=== PATIENT | male | born 1950 | race African-American/Black ===

== ENCOUNTER 2016-06-06 15:28 | Inpatient (IN) | payer MEDICARE, OTHER ==
[2016-06-06] VITALS (7 sets, daily range): BP systolic 118–142; BP diastolic 75–91; PULSE 84–106; RESP 18–20; TEMP 96.7–101.9; O2SAT 94–98
[~2016-06-06] VITALS: Ht 193 cm; Wt 99.0 kg
[~2016-06-06 15:28] MED LIST: 1-ME1LIQ PO; AMIT100 PO; ATEN-102 PO; DEPA500T3 PO; HALO10 PO; HALO5 PO; HYDR1CAP30 PO; TRIH2 PO; VITA100T65 PO; ZOCO40TA PO
[2016-06-06] MEDS ORDERED: OMEP20CA2 PO (15:54)
[2016-06-06] MEDS ORDERED: AMLO10TA2 PO (15:54)
[2016-06-06] MEDS ORDERED: DEPA500T PO ×2 (15:54)
[2016-06-06] MEDS ORDERED: AMIT100T2 PO (15:54)
[2016-06-06] MEDS ORDERED: HYDR1CAP30 PO (15:54)
[2016-06-06] MEDS ORDERED: VITA10006 PO (15:54)
[2016-06-06] MEDS ORDERED: HALO10TA PO (15:54)
[2016-06-06] MEDS ORDERED: TRIH2 PO (15:54)
[2016-06-06] MEDS ORDERED: ACETAMINOPHEN 325 MG TAB PO ONE (16:00)
[2016-06-06] MEDS ORDERED: SODIUM CHLOR 0.9% 1000 ML INJ 1,000 ML IV ONE ×2 (16:00→17:15)
--- NOTE | 2016-06-06 16:29 | PD ---
HPI Chief Complaint: General Weakness Time Seen by Provider: 15:37 Travel History International Travel<30 days: No Contact w/Intl Traveler<30days: No Traveled to known affect area: No History of Present Illness HPI This 65-year-old male presents to the emergency department complaining of generalized weakness. States she's been feeling more weak for the past several months. Today he was on the commode and he slid off and couldn't get himself back up. He states is been able to get himself up a few falls for a few months. He otherwise has been feeling generally well. He has a fever here. No urinary symptoms, URI symptoms, or any other new or worsening symptoms. History Past Medical History Narrative Medical Psychiatric disease, documented as manic depressive, adjustment disorder, and rule out schizoaffective disorder on the charts Hypertension Hyperlipidemia Social History Alcohol Use: No Tobacco Use: No Allergies-Medications (Allergen,Severity, Reaction): Coded Allergies: No Known Allergies (Verified , 06/06/16) Reported Meds & Prescriptions Reported Meds & Active Scripts Active Reported Vitamin E 1,000 Unit Cap 1,000 Units PO DAILY Trihexyphenidyl (Trihexyphenidyl HCl) 2 Mg Tab 1 Mg PO BID Omeprazole 20 Mg Cap 20 Mg PO DAILY Hydroxyzine Pamoate 25 Mg Cap 25 Mg PO TID Haloperidol 10 Mg Tab 10 Mg PO TID Depakote DR (Divalproex Sodium) 500 Mg Tabdr 1,000 Mg PO HS Depakote DR (Divalproex Sodium) 500 Mg Tabdr 500 Mg PO DAILY IN THE AM Amlodipine (Amlodipine Besylate) 10 Mg Tab 10 Mg PO DAILY Amitriptyline (Amitriptyline HCl) 100 Mg Tab 100 Mg PO HS Review of Systems Except as stated in HPI: all other systems reviewed are Neg Physical Exam Narrative GENERAL: Well-appearing 65-year-old man, no acute distress. SKIN: Focused skin assessment warm/dry. NECK: Trachea midline. No JVD. CARDIOVASCULAR: Regular rate and rhythm. No murmur appreciated. RESPIRATORY: No accessory muscle use. Clear to auscultation. Breath sounds equal bilaterally. GASTROINTESTINAL: Abdomen soft, non-tender, nondistended. Hepatic and splenic margins not palpable. MUSCULOSKELETAL: No obvious deformities. No edema. NEUROLOGICAL: Awake and alert. No obvious cranial nerve deficits. Motor grossly within normal limits. Normal speech. PSYCHIATRIC: Appropriate mood and affect; insight and judgment normal. Data Data Last Documented VS Vital Signs Date Time Temp Pulse Resp B/P Pulse Ox O2 Delivery O2 Flow Rate FiO2 06/06/16 19:12 97 20 135/80 97 Room Air 06/06/16 15:36 101.9 Orders Electrocardiogram (06/06/16 ) Complete Blood Count With Diff (06/06/16 15:56) Comprehensive Metabolic Panel (06/06/16 15:56) Urinalysis - C+S If Indicated (06/06/16 15:56) Iv Access Insert/Monitor (06/06/16 15:56) Chest, Single Ap (06/06/16 ) Influenzae A/B Antigen (06/06/16 15:56) Lactic Acid Sepsis Protocol (06/06/16 15:56) Sodium Chlor 0.9% 1000 Ml Inj (Ns 1000 M (06/06/16 16:00) Acetaminophen (Tylenol) (06/06/16 16:00) Sodium Chlor 0.9% 1000 Ml Inj (Ns 1000 M (06/06/16 17:15) Blood Culture (06/06/16 17:13) Troponin I (06/06/16 17:15) Enteric Path (Stool) (06/06/16 18:35) C Diff Toxin Pcr (06/06/16 18:35) Admit Order (Ed Use Only) (06/06/16 ) Ciprofloxacin 400 Mg Premix (Cipro 400 M (06/06/16 19:15) Metronidazole 500 Mg Inj (Flagyl 500 Mg (06/06/16 19:15) Labs Laboratory Tests Test 06/06/16 06/06/16 16:15 18:35 White Blood Count 6.9 TH/MM3 Red Blood Count 4.52 MIL/MM3 Hemoglobin 12.3 GM/DL Hematocrit 38.1 % Mean Corpuscular Volume 84.4 FL Mean Corpuscular Hemoglobin 27.2 PG Mean Corpuscular Hemoglobin 32.3 % Concent Red Cell Distribution Width 14.1 % Platelet Count 219 TH/MM3 Mean Platelet Volume 8.3 FL Neutrophils (%) (Auto) 83.8 % Lymphocytes (%) (Auto) 5.5 % Monocytes (%) (Auto) 10.5 % Eosinophils (%) (Auto) 0.1 % Basophils (%) (Auto) 0.1 % Neutrophils # (Auto) 5.8 TH/MM3 Lymphocytes # (Auto) 0.4 TH/MM3 Monocytes # (Auto) 0.7 TH/MM3 Eosinophils # (Auto) 0.0 TH/MM3 Basophils # (Auto) 0.0 TH/MM3 CBC Comment DIFF FINAL Differential Comment Sodium Level 141 MEQ/L Potassium Level 3.8 MEQ/L Chloride Level 112 MEQ/L Carbon Dioxide Level 20.4 MEQ/L Anion Gap 9 MEQ/L Blood Urea Nitrogen 25 MG/DL Creatinine 1.89 MG/DL Estimat Glomerular Filtration 44 ML/MIN Rate Random Glucose 108 MG/DL Lactic Acid Level 2.1 mmol/L Calcium Level 8.7 MG/DL Total Bilirubin 0.4 MG/DL Aspartate Amino Transf 23 U/L (AST/SGOT) Alanine Aminotransferase 35 U/L (ALT/SGPT) Alkaline Phosphatase 81 U/L Troponin I LESS THAN 0.02 NG/ML Total Protein 7.2 GM/DL Albumin 3.4 GM/DL Urine Color YELLOW Urine Turbidity CLEAR Urine pH 5.5 Urine Specific [place] 1.030 Urine Protein 30 mg/dL Urine Glucose (UA) NEG mg/dL Urine Ketones TRACE mg/dL Urine Occult Blood NEG Urine Nitrite NEG Urine Bilirubin NEG Urine Urobilinogen LESS THAN 2.0 MG/DL Urine Leukocyte Esterase TRACE Urine RBC 1 /hpf Urine WBC 3 /hpf Urine Squamous Epithelial <1 /hpf Cells Urine Bacteria RARE /hpf Urine Hyaline Casts 6 /lpf Urine Mucus FEW /lpf Microscopic Urinalysis Comment CULT NOT INDICATED MDM Medical Decision Making Medical Screen Exam Complete: Yes Emergency Medical Condition: Yes Interpretation(s) My review of EKG: Sinus tachycardia rate of 106, normal axis, nonspecific lateral ST changes could suggest some lateral ischemia. No definite evidence of acute ischemia. LABS: CBC is remarkable for mild anemia. CMP is generally unremarkable, mildly elevated BUN/creatinine Lactate 2.1 Troponin negative UA is unremarkable Chest x-ray: No focal consolidation. Tortuous aorta. No effusion. Differential Diagnosis Weakness, infection, electrolyte abnormality, adverse medication effect, other Narrative Course Medical decision making This a 65-year-old man who presents to the emergency department complaining of weakness, and couldn't get up after he slid off the toilet today. He is a fever here. He looks otherwise well. I got him up and walked him and he was able to walk with some assistance. He states he normally doesn't use a walker or any sort of assistive device. We'll check labs, flu, urine, reassess. FINAL: 65-year-old man with weakness, temperature with abnormal vital signs could suggest sepsis. No definite source. He looks overall well. We'll plan admission for observation. He had some loose stools in the emergency department here which were foul-smelling. Some concern for CVA. We'll give Cipro Flagyl, await cultures, IV fluids, reassess. Sekou Huerta MD Jun 06, 2016 16:29
[2016-06-06 16:32] LABS: AUTOMATED NEUTROPHIL # 5.8 TH/MM3 (1.8-7.7); BASOPHIL % 0.1 % (0.0-2.0); EOSINOPHIL % 0.1 % (0.0-4.0); HEMATOCRIT 38.1 % (39.0-51.0); HEMO FLAGS DIFF FINAL; LYMPH % 5.5 % (9.0-44.0); LYMPHOCYTE # 0.4 TH/MM3 (1.0-4.8); MEAN CELL VOLUME 84.4 FL (80.0-100.0); MEAN CORPUSCULAR HEMOGLOBIN 27.2 PG (27.0-34.0); MEAN CORPUSCULAR HGB CONC 32.3 % (32.0-36.0); MONO % 10.5 % (0.0-8.0); NEUT % 83.8 % (16.0-70.0); PLATELET COUNT 219 TH/MM3 (150-450); RED BLOOD COUNT 4.52 MIL/MM3 (4.50-5.90); RED CELL DISTRIBUTION WIDTH 14.1 % (11.6-17.2); WHITE BLOOD COUNT 6.9 TH/MM3 (4.0-11.0)
[2016-06-06 16:52] LABS: ALT (GPT) 35 U/L (12-78); ANION GAP 9 MEQ/L (5-15); AST (GOT) 23 U/L (15-37); BICARBONATE 20.4 MEQ/L (21.0-32.0); BLOOD UREA NITROGEN 25 MG/DL (7-18); CHLORIDE 112 MEQ/L (98-107); GLOMERULAR FILTRATION RATE 44 ML/MIN (>89); POTASSIUM 3.8 MEQ/L (3.5-5.1); SODIUM (NA) 141 MEQ/L (136-145)
[2016-06-06 16:54] LABS: ALKALINE PHOSPHATASE 81 U/L (45-117); TOTAL BILIRUBIN ADULT 0.4 MG/DL (0.2-1.0)
--- NOTE | 2016-06-06 17:01 | RADRPT ---
EXAM DATE/TIME: 06/06/2016 16:04 [facility] COMPARISON: No previous studies available for comparison. INDICATIONS : Weakness, loss of balance, shortness of breath. MEDICAL HISTORY : None. SURGICAL HISTORY : None. ENCOUNTER: Initial ACUITY: 1 day PAIN SCORE: 0/10 LOCATION: Bilateral chest FINDINGS: A single view of the chest demonstrates the lungs to be symmetrically aerated without evidence of mas s, infiltrate or effusion. The cardiomediastinal contours are unremarkable. Osseous structures are intact. CONCLUSION: 1. No focal consolidation. Tortuous aorta. No effusion. Roland Caba MD on June 06, 2016 at 16:59 Board Certified Radiologist. This report was verified electronically.
[2016-06-06 18:25] LABS: LACTIC ACID GHOST NOT REPORTABLE
[2016-06-06 18:50] LABS: BACTERIA, URINE RARE /hpf; BLOOD, URINE NEG (NEG); COMMENT (UR) CULT NOT INDICATED; CULTURE IF INDICATED CULT NOT INDICATED; GLUCOSE,URINE NEG (NEG); HYALINE CAST, URINE 6 /lpf (RARE); KETONE, URINE TRACE mg/dL (NEG); MUCUS URINE FEW /lpf (OCC); NITRITE,URINE NEG (NEG); PH, URINE 5.5 (5.0-8.5); SQUAMOUS EPITHELIAL CELL URINE <1 /hpf (0-5); URINE COLOR YELLOW (YELLW/STRAW)
[2016-06-06] MEDS ORDERED: CIPROFLOXACIN 400 MG PREMIX 200 ML IV ONE (19:15)
[2016-06-06] MEDS ORDERED: metroNIDAZOLE 500 MG INJ 100 ML IV ONE (19:15)
[2016-06-06] MEDS: SODIUM CHLOR 0.9% 1000 ML INJ 1,000 ML IV SCH (19:31)
--- NOTE | 2016-06-06 19:37 | HHI.HP ---
HPI Service [facility] Primary Care Physician Unknown Admission Diagnosis weakness, rule out sepsis Diagnoses: (1) SIRS (systemic inflammatory response syndrome) Diagnosis: Principal (2) Generalized weakness Diagnosis: Principal (3) SRAVAN (acute kidney injury) Diagnosis: Principal (4) Diarrhea Diagnosis: Principal (5) Bipolar disorder Diagnosis: Principal Travel History International Travel<30 Days: No Contact w/Intl Traveler <30 Da: No Traveled to Known Affected Are: No History of Present Illness This is a 65-year-old male with a PMH of Bipolar Disorder, Adjustment Disorder, HTN and Hyperlipidemia who was sent to the ER from SNF secondary to generalized weakness. Per report, patient was on the toilet and unable to get up on his own. Patient reports ongoing symptoms for the last 1-2 months. Patient poor historian but denies fever or chills. On arrival, BP 127/84, HR 106, O2 sat 94 % on RA, Temp 101.9. WBC normal. Mildly elevated neutrophil count. Creatinine 1.89, previously 1.28 and 04/01/14. Lactic Acid 2.1, repeat 1.2. UA with trace LE, mild bacteriuria. CXR with no acute findings. While in ER, patient with multiple episodes of diarrhea noted by RN. Stool cultures. S/p Cipro/Flagyl. Review of Systems Except as stated in HPI: all other systems reviewed are Neg ROS: 14 point review of systems otherwise negative. Past Family Social History Past Medical History PMH: Bipolar Disorder, Adjustment Disorder, HTN and Hyperlipidemia Past Surgical History PAST SURGICAL HISTORY: None Allergies: Coded Allergies: No Known Allergies (Verified , 06/06/16) Family History PAST FAMILY HISTORY: Reviewed. No h/o DM or CAD Social History PAST SOCIAL HISTORY: Negative for alcohol, tobacco or drugs. Physical Exam Vital Signs Vital Signs Date Time Temp Pulse Resp B/P Pulse Ox O2 Delivery O2 Flow Rate FiO2 06/06/16 19:12 99.2 97 20 135/80 97 Room Air 06/06/16 18:40 102 18 134/91 96 06/06/16 15:44 106 18 94 06/06/16 15:36 101.9 106 18 127/84 94 Physical Exam PE: GENERAL: Middle-aged male in no acute distress, speech impediment. HEENT: PERRLA, EOMI. No scleral icterus or conjunctival pallor. No lid lag or facial droop. CARDIOVASCULAR: Regular rate and rhythm. No obvious murmurs to auscultation. No chest tenderness to palpation. RESPIRATORY: No obvious rhonchi or wheezing. Clear to auscultation. Breath sounds equal bilaterally. GASTROINTESTINAL: Abdomen soft, non-tender, nondistended. BS normal. MUSCULOSKELETAL: Extremities without clubbing, cyanosis, or edema. No obvious deformities. NEUROLOGICAL: Awake, alert and oriented x4. No focal neurologic deficits. Moving both upper and lower extremities spontaneously. Laboratory Laboratory Tests Test 06/06/16 06/06/16 16:15 18:35 White Blood Count 6.9 Red Blood Count 4.52 Hemoglobin 12.3 Hematocrit 38.1 Mean Corpuscular Volume 84.4 Mean Corpuscular Hemoglobin 27.2 Mean Corpuscular Hemoglobin 32.3 Concent Red Cell Distribution Width 14.1 Platelet Count 219 Mean Platelet Volume 8.3 Neutrophils (%) (Auto) 83.8 Lymphocytes (%) (Auto) 5.5 Monocytes (%) (Auto) 10.5 Eosinophils (%) (Auto) 0.1 Basophils (%) (Auto) 0.1 Neutrophils # (Auto) 5.8 Lymphocytes # (Auto) 0.4 Monocytes # (Auto) 0.7 Eosinophils # (Auto) 0.0 Basophils # (Auto) 0.0 CBC Comment DIFF FINAL Differential Comment Sodium Level 141 Potassium Level 3.8 Chloride Level 112 Carbon Dioxide Level 20.4 Anion Gap 9 Blood Urea Nitrogen 25 Creatinine 1.89 Estimat Glomerular Filtration 44 Rate Random Glucose 108 Lactic Acid Level 2.1 Calcium Level 8.7 Total Bilirubin 0.4 Aspartate Amino Transf 23 (AST/SGOT) Alanine Aminotransferase 35 (ALT/SGPT) Alkaline Phosphatase 81 Troponin I LESS THAN 0.02 Total Protein 7.2 Albumin 3.4 Urine Color YELLOW Urine Turbidity CLEAR Urine pH 5.5 Urine Specific [place] 1.030 Urine Protein 30 Urine Glucose (UA) NEG Urine Ketones TRACE Urine Occult Blood NEG Urine Nitrite NEG Urine Bilirubin NEG Urine Urobilinogen LESS THAN 2.0 Urine Leukocyte Esterase TRACE Urine RBC 1 Urine WBC 3 Urine Squamous Epithelial <1 Cells Urine Bacteria RARE Urine Hyaline Casts 6 Urine Mucus FEW Microscopic Urinalysis Comment CULT NOT INDICATED Date/Time Procedure Status Source Growth 06/06/16 16:45 Aerobic Blood Culture Received Blood Peripheral Pending 06/06/16 16:45 Anaerobic Blood Culture Received Blood Peripheral Pending 06/06/16 16:15 Influenza Types A,B Antigen (MARY) - Final Complete Nasal Washing NEGATIVE FOR FLU A AND B ANTIGEN.... Result Diagram: 06/06/16 1615 06/06/16 1615 Assessment and Plan Problem List: (1) SIRS (systemic inflammatory response syndrome) ICD Code: R65.10 Status: Acute (2) Generalized weakness ICD Code: R53.1 Status: Acute (3) Diarrhea ICD Code: R19.7 Status: Acute (4) SRAVAN (acute kidney injury) ICD Code: N17.9 Status: Acute (5) Bipolar disorder ICD Code: F31.9 Status: Acute Assessment and Plan A/P: 1. SIRS: Temp 101.9, HR 106, WBC normal, Source-unclear, suspect possible gastroenteritis w/ +diarrhea. S/p Blood Cultures, Cipro/Flagyl in ER. Follow up cultures, continue IV Abx. CXR w/ no acute findings, images reviewed by me. 2. Generalized Weakness: Likely secondary to above/dehydration. IVF for hydration, continue w/ above treatment. 3. Diarrhea: multiple episodes of non-bloody diarrhea while in ER, stool cultures pending. No c/o abdominal pain, nausea or vomiting. S/p Cipro/Flagyl in ER, will continue w/ empiric treatment of possible gastroenteritis/colitis in light of SIRS. Follow up cultures. 4. Bipolar Disorder: Stable. Resume home medications. 5. DVT Prophylaxis: SCD/Teds. 6. Social work for d/c planning as needed. 7. Case discussed w/ ER physician at length. Physician Certification 2 Midnight Certification Type: Admission for Inpatient Services Order for Inpatient Services The services are ordered in accordance with Medicare regulations or non- Medicare payer requirements, as applicable. In the case of services not specified as inpatient-only, they are appropriately provided as inpatient services in accordance with the 2-midnight benchmark. Estimated LOS (days): 2 days is the estimated time the patient will need to remain in the hospital, assuming treatment plan goals are met and no additional complications. Post-Hospital Plan: Not yet determined Aracelis Wilder MD Jun 06, 2016 19:37
[2016-06-06] MEDS ORDERED: ACETAMINOPHEN/HYDROcodone 325 MG/5 MG TAB PO PRN (19:45)
[2016-06-06] MEDS ORDERED: ACETAMINOPHEN 325 MG TAB PO PRN (19:45)
[2016-06-06] MEDS ORDERED: SODIUM CHLORIDE 0.9% FLUSH 10 ML FLUSH IV FLUSH PRN (19:45)
[2016-06-06] MEDS ORDERED: MORPHINE SULFATE 4 MG/ML INJ IV PRN (19:45)
[2016-06-06] MEDS ORDERED: ONDANSETRON HCL 4 MG/2 ML VIAL IVP PRN (19:45)
[2016-06-06] MEDS ORDERED: BISACODYL 10 MG SUPP RECTAL PRN (19:45)
[2016-06-06] MEDS: SODIUM CHLORIDE 0.9% FLUSH 10 ML FLUSH IV FLUSH SCH (20:40)
[2016-06-06 21:13] LABS: C. DIFF EPI 027 PRESUMPTIVE NEGATIVE (NEGATIVE); C. DIFF TOXIN PCR NEGATIVE (NEGATIVE)
[2016-06-06] MEDS: AMITRIPTYLINE HCL 100 MG TAB PO SCH (21:55)
[2016-06-06] MEDS: TRIHEXYPHENIDYL HCL 2 MG TAB PO SCH (21:55)
[2016-06-06] MEDS: DIVALPROEX DR 500 MG TABEC PO SCH (21:55)
[2016-06-07] MEDS: metroNIDAZOLE 500 MG INJ 100 ML IV SCH ×3 (04:00→20:16)
[2016-06-07 04:52] VITALS: BP 117/78; PULSE 83; RESP 20; TEMP 96.7; O2SAT 99
[2016-06-07] MEDS: SODIUM CHLOR 0.9% 1000 ML INJ 1,000 ML IV SCH ×3 (05:31→20:19)
[2016-06-07 08:00] VITALS: BP 127/86; PULSE 82; RESP 18; TEMP 95.8; O2SAT 97
[2016-06-07 08:21] LABS: AUTOMATED NEUTROPHIL # 3.6 TH/MM3 (1.8-7.7); BASOPHIL % 0.4 % (0.0-2.0); EOSINOPHIL # 0.1 TH/MM3 (0-0.4); EOSINOPHIL % 1.4 % (0.0-4.0); HEMO FLAGS AUTO DIFF; LYMPH % 17.6 % (9.0-44.0); LYMPHOCYTE # 1.1 TH/MM3 (1.0-4.8); MEAN CELL VOLUME 83.2 FL (80.0-100.0); MEAN CORPUSCULAR HEMOGLOBIN 27.6 PG (27.0-34.0); MEAN CORPUSCULAR HGB CONC 33.2 % (32.0-36.0); NEUT % 58.6 % (16.0-70.0); PLATELET COUNT 187 TH/MM3 (150-450); RED CELL DISTRIBUTION WIDTH 14.2 % (11.6-17.2); WHITE BLOOD COUNT 6.1 TH/MM3 (4.0-11.0)
[2016-06-07] MEDS: PANTOPRAZOLE SOD 20 MG DELAYED RELEASE TAB PO SCH (08:21)
[2016-06-07] MEDS: CIPROFLOXACIN 400 MG PREMIX 200 ML IV SCH ×2 (08:21→20:16)
[2016-06-07] MEDS: SODIUM CHLORIDE 0.9% FLUSH 10 ML FLUSH IV FLUSH SCH ×2 (08:22→20:16)
[2016-06-07] MEDS: hydrOXYzine PAMOATE 25 MG CAP PO SCH ×3 (08:22→17:24)
[2016-06-07] MEDS: TRIHEXYPHENIDYL HCL 2 MG TAB PO SCH ×2 (08:22→20:19)
[2016-06-07] MEDS: VITAMIN E 400 UNIT CAP PO SCH (08:22)
[2016-06-07] MEDS: HALOPERIDOL 10 MG TAB PO SCH ×3 (08:22→17:24)
[2016-06-07] MEDS: DIVALPROEX DR 500 MG TABEC PO SCH ×2 (08:22→20:18)
[2016-06-07 08:27] LABS: ALKALINE PHOSPHATASE 66 U/L (45-117); ALT (GPT) 36 U/L (12-78); ANION GAP 10 MEQ/L (5-15); AST (GOT) 36 U/L (15-37); BICARBONATE 23.7 MEQ/L (21.0-32.0); BLOOD UREA NITROGEN 18 MG/DL (7-18); CHLORIDE 110 MEQ/L (98-107); GLOMERULAR FILTRATION RATE 64 ML/MIN (>89); SODIUM (NA) 144 MEQ/L (136-145); TOTAL BILIRUBIN ADULT 0.4 MG/DL (0.2-1.0)
[2016-06-07 08:40] LABS: POTASSIUM 3.9 MEQ/L (3.5-5.1)
[2016-06-07 09:15] LABS: BANDS 6 % (0-6); NEUTROPHIL # MANUAL DIFF 3.9 TH/MM3 (1.8-7.7); OVALOCYTES 1+ (NORMAL); PLATELET ESTIMATE SMEAR NORMAL (NORMAL); PLATELET MORPHOLOGY NORMAL (NORMAL); POLYS (SEG NEUTROPHILS) 58 % (16-70); SCAN/DIFF FINAL DIFF MANUAL; WBC DIFF SAMPLE 100
--- NOTE | 2016-06-07 10:42 | EKG ---
Date Performed: 06/06/2016 Time Performed: 15:48:23 PTAGE: 65 years EKG: SINUS TACHYCARDIA MODERATE T-WAVE ABNORMALITY, CONSIDER LATERAL ISCHEMIA ABNORMAL ECG PREVIOUS TRACING : 05/02/2008 22.56 DOCTOR: Colton Degroot Interpretating Date/Time 06/07/2016 10:37:46
--- NOTE | 2016-06-07 10:47 | HHI.PR ---
Subjective Remarks Patient resting in bed he is concerned about right inguinal bulging which he had for several months, nonpainful He is afebrile overnight, no chest pain or short of breath or cough Objective Vitals Vital Signs Date Time Temp Pulse Resp B/P Pulse Ox O2 Delivery O2 Flow Rate FiO2 06/07/16 08:00 95.8 82 18 127/86 97 06/07/16 04:52 96.7 83 20 117/78 99 06/06/16 23:30 97.5 86 20 118/75 97 06/06/16 23:00 84 06/06/16 21:25 96.7 89 20 119/80 98 06/06/16 20:35 96 18 142/76 96 06/06/16 19:12 99.2 97 20 135/80 97 Room Air 06/06/16 18:40 102 18 134/91 96 06/06/16 15:44 106 18 94 06/06/16 15:36 101.9 106 18 127/84 94 I/O 06/06/16 06/06/16 06/06/16 06/07/16 06/07/16 06/07/16 07:00 15:00 23:00 07:00 15:00 23:00 Output Total 250 ml 300 ml Balance -250 ml -300 ml Output Urine Total 250 ml 300 ml # Voids 1 # Bowel Movements 3 1 Result Diagram: 06/07/16 0750 06/07/16 0648 Objective Remarks GENERAL: This is a well-nourished, well-developed patient, in no apparent distress. CARDIOVASCULAR: Regular rate and rhythm without murmurs, gallops, or rubs. RESPIRATORY: Clear to auscultation. Breath sounds equal bilaterally. No wheezes , rales, or rhonchi. GASTROINTESTINAL: Abdomen soft, non-tender, nondistended. Normal active bowel sounds MUSCULOSKELETAL: Extremities without clubbing, cyanosis, or edema. NEURO: Alert & Oriented x4 to person, place, time, situation. Moves all ext x4 A/P Problem List: (1) SIRS (systemic inflammatory response syndrome) ICD Code: R65.10 Status: Acute (2) Generalized weakness ICD Code: R53.1 Status: Acute (3) Diarrhea ICD Code: R19.7 Status: Acute (4) SRAVAN (acute kidney injury) ICD Code: N17.9 Status: Acute (5) Bipolar disorder ICD Code: F31.9 Status: Acute Assessment and Plan 06/07: C. difficile negative, fever resolved, no leukocytosis, still feeling very fatigued and weakness, unable to stand and walk, stool analysis still pending Lactic acidosis resolved, creatinine improved 1.8- 1.3 Initial A/P: - SIRS: Temp 101.9, HR 106, WBC normal, Source-unclear, suspect possible gastroenteritis w/ +diarrhea. S/p Blood Cultures, Cipro/Flagyl in ER. Follow up cultures, continue IV Abx. CXR w/ no acute findings, images reviewed by me. - Generalized Weakness: Likely secondary to above/dehydration. IVF for hydration, continue w/ above treatment. - SRAVAN on possible CKD: Creatinine improved from 1.8- 1.3 - Diarrhea: multiple episodes of non-bloody diarrhea while in ER, stool cultures pending. No c/o abdominal pain, nausea or vomiting. S/p Cipro/Flagyl in ER, will continue w/ empiric treatment of possible gastroenteritis/colitis in light of SIRS. Follow up cultures. - Bipolar Disorder: Stable. Resume home medications. - DVT Prophylaxis: SCD/Teds. 6. Social work for d/c planning as needed. Amado Hurd MD Jun 07, 2016 10:47
[2016-06-07 12:15] VITALS: BP 151/96; PULSE 84; RESP 18; TEMP 96; O2SAT 96
[2016-06-07 16:08] VITALS: BP 127/80; PULSE 84; RESP 18; TEMP 96.2; O2SAT 99
[2016-06-07 20:00] VITALS: PULSE 84
[2016-06-07] MEDS: AMITRIPTYLINE HCL 100 MG TAB PO SCH (20:18)
[2016-06-07 20:40] VITALS: BP 121/78; PULSE 93; RESP 17; TEMP 99; O2SAT 98
[2016-06-08] VITALS (8 sets, daily range): BP systolic 100–136; BP diastolic 68–86; PULSE 90–98; RESP 16–20; TEMP 97.1–97.8; O2SAT 93–100
[2016-06-08] MEDS: metroNIDAZOLE 500 MG INJ 100 ML IV SCH ×3 (04:10→20:15)
[2016-06-08] MEDS: VITAMIN E 400 UNIT CAP PO SCH (08:24)
[2016-06-08] MEDS: DIVALPROEX DR 500 MG TABEC PO SCH ×2 (08:25→20:15)
[2016-06-08] MEDS: hydrOXYzine PAMOATE 25 MG CAP PO SCH ×3 (08:26→18:10)
[2016-06-08] MEDS: PANTOPRAZOLE SOD 20 MG DELAYED RELEASE TAB PO SCH (08:26)
[2016-06-08] MEDS: HALOPERIDOL 10 MG TAB PO SCH ×3 (08:26→18:10)
[2016-06-08] MEDS: TRIHEXYPHENIDYL HCL 2 MG TAB PO SCH ×2 (08:27→20:14)
[2016-06-08] MEDS: SODIUM CHLORIDE 0.9% FLUSH 10 ML FLUSH IV FLUSH SCH ×2 (08:28→20:15)
[2016-06-08] MEDS: CIPROFLOXACIN 400 MG PREMIX 200 ML IV SCH ×2 (08:29→20:15)
[2016-06-08] MEDS: SODIUM CHLOR 0.9% 1000 ML INJ 1,000 ML IV SCH ×2 (11:31→16:37)
--- NOTE | 2016-06-08 12:13 | HHI.PR ---
Subjective Remarks patient is laying in bed comfortably, he denied any acute complain slight fever chest pain short of breath I discussed with the nurse we will check his CK level today. If this is normal probably can be discharge however patient complains still feeling very well we will check PT eval and will have medical case manager follow up on discharge planning Objective Vitals Vital Signs Date Time Temp Pulse Resp B/P Pulse Ox O2 Delivery O2 Flow Rate FiO2 06/08/16 08:00 97.3 95 18 128/72 99 06/08/16 08:00 97.3 91 18 128/72 99 06/08/16 05:15 97.8 98 20 100/86 99 06/08/16 01:42 97.7 91 20 120/73 97 06/07/16 20:40 99.0 93 17 121/78 98 06/07/16 20:00 84 06/07/16 16:08 96.2 84 18 127/80 99 06/07/16 12:15 96.0 84 18 151/96 96 I/O 06/07/16 06/07/16 06/07/16 06/08/16 06/08/16 06/08/16 06:59 14:59 22:59 06:59 14:59 22:59 Intake Total 720 ml 1410 ml Output Total 300 ml 800 ml 600 ml 200 ml Balance -300 ml 720 ml 610 ml -600 ml -200 ml Intake Oral 720 ml IV Total 1410 ml Output Urine Total 300 ml 800 ml 600 ml 200 ml # Voids 3 1 1 # Bowel Movements 1 1 0 2 1 Result Diagram: 06/07/16 0750 06/07/16 0648 Objective Remarks GENERAL: This is a well-nourished, well-developed patient, in no apparent distress. CARDIOVASCULAR: Regular rate and rhythm without murmurs, gallops, or rubs. RESPIRATORY: Clear to auscultation. Breath sounds equal bilaterally. No wheezes , rales, or rhonchi. GASTROINTESTINAL: Abdomen soft, non-tender, nondistended. Normal active bowel sounds MUSCULOSKELETAL: Extremities without clubbing, cyanosis, or edema. NEURO: Alert & Oriented x4 to person, place, time, situation. Moves all ext x4 A/P Problem List: (1) SIRS (systemic inflammatory response syndrome) ICD Code: R65.10 Status: Acute (2) Generalized weakness ICD Code: R53.1 Status: Acute (3) Diarrhea ICD Code: R19.7 Status: Acute (4) SRAVAN (acute kidney injury) ICD Code: N17.9 Status: Acute (5) Bipolar disorder ICD Code: F31.9 Status: Acute Assessment and Plan 06/07: C. difficile negative, fever resolved, no leukocytosis, still feeling very fatigued and weakness, unable to stand and walk, stool analysis still pending Lactic acidosis resolved, creatinine improved 1.8- 1.3 06/08:D/W the nurse we will check his CK level today. If this is normal probably can be discharge however patient complains still feeling very well we will check PT eval and will have medical case manager follow up on discharge planning Addendum: Received a call from the nurse CK came back [phone], also blood culture came back positive for>> gram-positive cocci and gram coag negative possibly contamination, but will repeat blood culture and start vancomycin Repeat BMP CK in a.m. monitor for any fever Initial A/P: - SIRS: Temp 101.9, HR 106, WBC normal, Source-unclear, suspect possible gastroenteritis w/ +diarrhea. S/p Blood Cultures, Cipro/Flagyl in ER. Follow up cultures, continue IV Abx. CXR w/ no acute findings, images reviewed by me. - Generalized Weakness: Likely secondary to above/dehydration. IVF for hydration, continue w/ above treatment. - SRAVAN on possible CKD: Creatinine improved from 1.8- 1.3 - Diarrhea: multiple episodes of non-bloody diarrhea while in ER, stool cultures pending. No c/o abdominal pain, nausea or vomiting. S/p Cipro/Flagyl in ER, will continue w/ empiric treatment of possible gastroenteritis/colitis in light of SIRS. Follow up cultures. - Bipolar Disorder: Stable. Resume home medications. - DVT Prophylaxis: SCD/Teds. 6. Social work for d/c planning as needed. Discharge Planning Today if CK within normal limits, pending PT assessment in medical case manager follow up for placement if needed Amado Hurd MD Jun 08, 2016 12:13
--- NOTE | 2016-06-08 12:15 | HHI.DS ---
Discharge Summary Admission Date Jun 06, 2016 at 19:13 Discharge Date: Jun 09, 2016 Admitting Diagnosis weakness, rule out sepsis (1) SIRS (systemic inflammatory response syndrome) ICD Code: R65.10 (2) Generalized weakness ICD Code: R53.1 (3) Diarrhea ICD Code: R19.7 (4) SRAVAN (acute kidney injury) ICD Code: N17.9 (5) Bipolar disorder ICD Code: F31.9 Procedures None Brief History - From Admission This is a 65-year-old male with a PMH of Bipolar Disorder, Adjustment Disorder, HTN and Hyperlipidemia who was sent to the ER from SNF secondary to generalized weakness. Per report, patient was on the toilet and unable to get up on his own. Patient reports ongoing symptoms for the last 1-2 months. Patient poor historian but denies fever or chills. On arrival, BP 127/84, HR 106, O2 sat 94 % on RA, Temp 101.9. WBC normal. Mildly elevated neutrophil count. Creatinine 1.89, previously 1.28 and 04/01/14. Lactic Acid 2.1, repeat 1.2. UA with trace LE, mild bacteriuria. CXR with no acute findings. While in ER, patient with multiple episodes of diarrhea noted by RN. Stool cultures. S/p Cipro/Flagyl. CBC/BMP: 06/07/16 0750 06/07/16 0648 Significant Findings Laboratory Tests Test 06/06/16 06/06/16 06/07/16 06/07/16 16:15 18:35 06:48 07:50 Hemoglobin 12.3 GM/DL 11.6 GM/DL (13.0-17.0) (13.0-17.0) Hematocrit 38.1 % 35.0 % (39.0-51.0) (39.0-51.0) Neutrophils (%) (Auto) 83.8 % (16.0-70.0) Lymphocytes (%) (Auto) 5.5 % (9.0-44.0) Monocytes (%) (Auto) 10.5 % 22.0 % (0.0-8.0) (0.0-8.0) Lymphocytes # (Auto) 0.4 TH/MM3 (1.0-4.8) Chloride Level 112 MEQ/L 110 MEQ/L (98-107) (98-107) Carbon Dioxide Level 20.4 MEQ/L (21.0-32.0) Blood Urea Nitrogen 25 MG/DL (7-18) Creatinine 1.89 MG/DL 1.35 MG/DL (0.60-1.30) (0.60-1.30) Estimat Glomerular Filtration 44 ML/MIN (>89) 64 ML/MIN (>89) Rate Random Glucose 108 MG/DL (74-106) Lactic Acid Level 2.1 mmol/L (0.4-2.0) Troponin I LESS THAN 0.02 NG/ML (0.02-0.05) Urine Protein 30 mg/dL (NEG-TRACE) Urine Ketones TRACE mg/dL (NEG) Urine Leukocyte Esterase TRACE (NEG) Urine Bacteria RARE /hpf (NONE) Urine Mucus FEW /lpf (OCC) Calcium Level 7.9 MG/DL (8.5-10.1) Total Protein 5.7 GM/DL (6.4-8.2) Albumin 2.9 GM/DL (3.4-5.0) Red Blood Count 4.20 MIL/MM3 (4.50-5.90) Monocytes # (Auto) 1.4 TH/MM3 (0-0.9) Monocytes % 17 % (0-8) Ovalocytes 1+ (NORMAL) PE at Discharge GENERAL: This is a well-nourished, well-developed patient, in no apparent distress. CARDIOVASCULAR: Regular rate and rhythm without murmurs, gallops, or rubs. RESPIRATORY: Clear to auscultation. Breath sounds equal bilaterally. No wheezes , rales, or rhonchi. GASTROINTESTINAL: Abdomen soft, non-tender, nondistended. Normal active bowel sounds MUSCULOSKELETAL: Extremities without clubbing, cyanosis, or edema. NEURO: Alert & Oriented x4 to person, place, time, situation. Moves all ext x4 Hospital Course 65 years old male with SIRS Temp 101.9, HR 106, WBC normal, Sourceunclear, suspect possible gastroenteritis w/ +diarrhea. S/p Blood Cultures, Cipro/ Flagyl in ER. Follow up cultures, continue IV Abx. CXR w/ no acute findings, images reviewed by me. Generalized Weakness Likely secondary to above/dehydration. IVF for hydration , continue w/ above treatment. SRAVAN on possible CKD worsened with hydration Creatinine improved from 1.8- 1.3 Diarrhea multiple episodes of nonbloody diarrhea while in ER, stool cultures pending. No c/o abdominal pain, nausea or vomiting. S/p Cipro/Flagyl in ER, will continue w/ empiric treatment of possible gastroenteritis/colitis in light of SIRS. Follow up cultures. Bipolar Disorder Stable. Resume home medications. DVT Prophylaxis SCD/Teds. On 06/07 C. difficile negative, fever resolved, no leukocytosis, still feeling very fatigued and weakness, unable to stand and walk, stool analysis still pending Lactic acidosis resolved, creatinine improved 1.8- 1.3 On 06/08 stool analysis all came negative, no clear source of infection D/W the nurse we will check his CK level today just to rule out any underlying NMS. If this is normal probably can be discharge however patient complains still feeling very well we will check PT eval and will have machine adjuster leader case trim follow up on discharge planning. 06/09 CK normalized , bcx coag negative mostly contamination, repeated cx negative one day , pt afebrile , will dc to snf , i d/w our group nurse to follow the repeated blood cx result and notify me and the pt if it comes positive . [id number] encounter performed with the patient on discharge day, as well as physical exam, summary of hospitalization course and postdischarge plan has been D/W the patient. D/W nurse D/W machine adjuster leader case trim. Discharge medications reviewed and printed and signed, post discharge follow up visit with PCP and other specialist as well as Brief hospital course and discharge summary has been placed. Pt Condition on Discharge: Fair Discharge Disposition: Discharge Home Discharge Time: > 30 minutes Discharge Instructions DIET: Follow Instructions for: Heart Healthy Diet Activities you can perform: Weight Bearing as Emily Continued Medications: Amitriptyline (Amitriptyline) 100 Mg Tab 100 MG PO HS Control Depression #30 Ref 0 TAB Amlodipine (Amlodipine) 10 Mg Tab 10 MG PO DAILY Blood Pressure Management #30 Ref 0 TAB Divalproex (Mabel DANIEL) 500 Mg Tabdr 500 MG PO DAILY IN THE AM Control Seizures #[address] (Depakote DR) 500 Mg Tabdr 1000 MG PO HS Control Seizures #60 Ref 0 TAB Haloperidol (Haloperidol) 10 Mg Tab 10 MG PO TID Ref 0 TAB Hydroxyzine Pamoate (Hydroxyzine Pamoate) 25 Mg Cap 25 MG PO TID Ref 0 CAP Omeprazole (Omeprazole) 20 Mg Cap 20 MG PO DAILY Trihexyphenidyl (Trihexyphenidyl) 2 Mg Tab 1 MG PO BID Parkinson Disease Mgmt #60 Ref 0 TAB Vitamin E (Vitamin E) 1,000 Unit Cap 1000 UNITS PO DAILY Nutritional Supplement Ref 0 CAP Amado Hurd MD Jun 08, 2016 12:15
[2016-06-08] MEDS ORDERED: Vancomycin Consult Pharmacy 1 EA OTHER SCH (14:00)
[2016-06-08] MEDS ORDERED: VANCOMYCIN INJ 1,450 MG in SODIUM CHLORID 0.9% 500 ML INJ 500 ML IV SCH (16:00)
[2016-06-08] MEDS: VANCOMYCIN INJ 2,000 MG in SODIUM CHLORID 0.9% 500 ML INJ 500 ML IV SCH (16:37)
[2016-06-08] MEDS: AMITRIPTYLINE HCL 100 MG TAB PO SCH (20:14)
[2016-06-09] VITALS: BP 132/83; PULSE 84; RESP 18; TEMP 97; O2SAT 97
[2016-06-09] MEDS: metroNIDAZOLE 500 MG INJ 100 ML IV SCH ×2 (03:27→12:43)
[2016-06-09 04:00] VITALS: BP 135/72; PULSE 85; RESP 18; TEMP 96.5; O2SAT 98
[2016-06-09 08:00] VITALS: BP 142/93; PULSE 102; RESP 22; TEMP 97.8; O2SAT 96
[2016-06-09] MEDS: SODIUM CHLOR 0.9% 1000 ML INJ 1,000 ML IV SCH ×2 (08:50)
[2016-06-09] MEDS: CIPROFLOXACIN 400 MG PREMIX 200 ML IV SCH (08:50)
[2016-06-09] MEDS: SODIUM CHLORIDE 0.9% FLUSH 10 ML FLUSH IV FLUSH SCH (08:50)
[2016-06-09] MEDS: PANTOPRAZOLE SOD 20 MG DELAYED RELEASE TAB PO SCH (09:03)
[2016-06-09] MEDS: DIVALPROEX DR 500 MG TABEC PO SCH (09:03)
[2016-06-09] MEDS: hydrOXYzine PAMOATE 25 MG CAP PO SCH ×3 (09:03→17:37)
[2016-06-09] MEDS: HALOPERIDOL 10 MG TAB PO SCH ×3 (09:03→17:37)
[2016-06-09] MEDS: VITAMIN E 400 UNIT CAP PO SCH (09:09)
[2016-06-09] MEDS: TRIHEXYPHENIDYL HCL 2 MG TAB PO SCH (09:09)
--- NOTE | 2016-06-09 10:30 | HHI.PR ---
Subjective Remarks patient is afebrile today, his CK normalized still complaining of weakness, blood culture showed coag-negative Tan[place] mostly contamination Objective Vitals Vital Signs Date Time Temp Pulse Resp B/P Pulse Ox O2 Delivery O2 Flow Rate FiO2 06/09/16 08:00 97.8 102 22 142/93 96 06/09/16 04:00 96.5 85 18 135/72 98 06/09/16 00:00 97.0 84 18 132/83 97 06/08/16 23:00 92 06/08/16 20:00 97.5 94 18 136/84 93 06/08/16 18:00 94 06/08/16 16:00 97.1 92 16 128/68 99 06/08/16 12:00 97.1 90 18 121/74 100 I/O 06/08/16 06/08/16 06/08/16 06/09/16 06/09/16 06/09/16 07:00 15:00 23:00 07:00 15:00 23:00 Intake Total 440 ml 1145 ml Output Total 600 ml 200 ml 675 ml 350 ml 125 ml Balance -600 ml -200 ml -235 ml 795 ml -125 ml Intake Oral 440 ml 300 ml IV Total 845 ml Output Urine Total 600 ml 200 ml 675 ml 350 ml 125 ml # Voids 1 1 2 # Bowel Movements 2 1 1 Result Diagram: 06/07/16 0750 06/07/16 0648 Objective Remarks GENERAL: This is a well-nourished, well-developed patient, in no apparent distress. CARDIOVASCULAR: Regular rate and rhythm without murmurs, gallops, or rubs. RESPIRATORY: Clear to auscultation. Breath sounds equal bilaterally. No wheezes , rales, or rhonchi. GASTROINTESTINAL: Abdomen soft, non-tender, nondistended. Normal active bowel sounds MUSCULOSKELETAL: Extremities without clubbing, cyanosis, or edema. NEURO: Alert & Oriented x4 to person, place, time, situation. Moves all ext x4 Procedures None A/P Problem List: (1) SIRS (systemic inflammatory response syndrome) ICD Code: R65.10 Status: Acute (2) Generalized weakness ICD Code: R53.1 Status: Acute (3) Diarrhea ICD Code: R19.7 Status: Acute (4) SRAVAN (acute kidney injury) ICD Code: N17.9 Status: Acute (5) Bipolar disorder ICD Code: F31.9 Status: Acute Assessment and Plan Initial A/P: - SIRS: Temp 101.9, HR 106, WBC normal, Source-unclear, suspect possible gastroenteritis w/ +diarrhea. S/p Blood Cultures, Cipro/Flagyl in ER. Follow up cultures, continue IV Abx. CXR w/ no acute findings, images reviewed by me. C. difficile and rest of the stool analysis negative, fever resolved, no leukocytosis, still feeling very fatigued and weakness, unable to stand and walk , Lactic acidosis resolved, creatinine improved blood culture came back positive for>> gram coag negative mostly contamination , repeat blood culturenegative so far, status post IV vancomycin - Mild Elevated CK , resolved , in light of unknown source of fever, and patient being on multiple dementia psych and seizure medication(Depakote, haloperidol, Artane), monitor for any symptom of an NMS, will repeat CK level today, started on iv fluid, Ativan as needed - Generalized Weakness: Likely secondary to above/dehydration. IVF for hydration, continue w/ above treatment. - SRAVAN on possible CKD: Creatinine improved from 1.8- 1.3 - Diarrhea: multiple episodes of non-bloody diarrhea while in ER, stool cultures pending. No c/o abdominal pain, nausea or vomiting. S/p Cipro/Flagyl , will stop since culture is negative - Bipolar Disorder: Stable. Resume home medications. - DVT Prophylaxis: SCD/Teds. Discharge Planning to snf Problem Qualifiers (1) Bipolar disorder: Qualified Code: F31.70 - Bipolar affective disorder in remission Amado Hurd MD Jun 09, 2016 10:30
[2016-06-09] MEDS: VANCOMYCIN INJ 2,000 MG in SODIUM CHLORID 0.9% 500 ML INJ 500 ML IV SCH (10:58)
[2016-06-09 11:05] VITALS: PULSE 88
[2016-06-09 11:41] VITALS: BP 139/94; PULSE 97; RESP 22; TEMP 96.7; O2SAT 98
[2016-06-09 13:39] LABS: AUTOMATED NEUTROPHIL # 3.8 TH/MM3 (1.8-7.7); BASOPHIL % 0.3 % (0.0-2.0); EOSINOPHIL # 0.2 TH/MM3 (0-0.4); EOSINOPHIL % 3.7 % (0.0-4.0); HEMATOCRIT 36.9 % (39.0-51.0); HEMO FLAGS DIFF FINAL; LYMPH % 14.7 % (9.0-44.0); LYMPHOCYTE # 0.9 TH/MM3 (1.0-4.8); MEAN CELL VOLUME 83.5 FL (80.0-100.0); MEAN CORPUSCULAR HEMOGLOBIN 27.2 PG (27.0-34.0); MEAN CORPUSCULAR HGB CONC 32.6 % (32.0-36.0); MONO % 15.7 % (0.0-8.0); NEUT % 65.6 % (16.0-70.0); PLATELET COUNT 207 TH/MM3 (150-450); RED BLOOD COUNT 4.42 MIL/MM3 (4.50-5.90); RED CELL DISTRIBUTION WIDTH 14.2 % (11.6-17.2); WHITE BLOOD COUNT 5.8 TH/MM3 (4.0-11.0)
[2016-06-09 14:05] LABS: BICARBONATE 27.5 MEQ/L (21.0-32.0); POTASSIUM 3.4 MEQ/L (3.5-5.1)
[2016-06-09 16:17] VITALS: BP 136/81; PULSE 97; RESP 22; TEMP 96.7; O2SAT 96
[2016-06-10] MEDS ORDERED: PHARMACY ORDERED LAB ONE (21:45)
== END 2016-06-09 18:10 | DRG 872 ==
LOC: NEPC 15:28 → NEDA 19:13 → N05A 21:04
PROVIDERS: ADMIT Family Medicine; ATTEND Family Medicine
DX: A41.9 Sepsis, unspecified organism (principal); N17.9 Acute kidney failure, unspecified; E87.2 Acidosis; F43.20 Adjustment disorder, unspecified; E78.5 Hyperlipidemia, unspecified; F31.9 Bipolar disorder, unspecified; R19.7 Diarrhea, unspecified; E86.0 Dehydration; K52.9 Noninfective gastroenteritis and colitis, unspecified; I12.9 Hypertensive chronic kidney disease with stage 1 through stage 4 chronic kidney disease, or unspecified chronic kidney disease; N18.9 Chronic kidney disease, unspecified
CPT/HCPCS: 71010; 80048; 80053; 81001; 82550; 82552; 83605; 84484; 85007; 85025; 85027; 85652; 86140; 86403; 87040; 87077; 87186; 87205; 87493; 87506; 87804; 93005; 96360; 96361; J0744; J3370; J7030; J7040; Q0177

== ENCOUNTER 2016-12-05 03:45 | Inpatient (IN) | payer MEDICARE, OTHER ==
[2016-12-05] VITALS (11 sets, daily range): BP systolic 99–161; BP diastolic 62–102; PULSE 74–100; RESP 16–18; TEMP 97.9–98.6; O2SAT 95–99
[~2016-12-05] VITALS: Ht 193 cm; Wt 101.5 kg
[~2016-12-05 03:45] MED LIST changes: -1-ME1LIQ PO; -AMIT100 PO; +AMIT100T2 PO; +AMLO10TA2 PO; -ATEN-102 PO; +DEPA500T PO; -DEPA500T3 PO; -HALO10 PO; +HALO10TA PO; -HALO5 PO; +OMEP20CA2 PO; +VITA10006 PO; -VITA100T65 PO; -ZOCO40TA PO
[2016-12-05] MEDS ORDERED: METO25TA3 PO (04:00)
[2016-12-05] MEDS ORDERED: VITA200C3 PO (04:00)
[2016-12-05 04:17] LABS: AUTOMATED NEUTROPHIL # 3.3 TH/MM3 (1.8-7.7); BASOPHIL % 0.3 % (0.0-2.0); EOSINOPHIL # 0.2 TH/MM3 (0-0.4); EOSINOPHIL % 3.5 % (0.0-4.0); HEMATOCRIT 30.7 % (39.0-51.0); HEMO FLAGS DIFF FINAL; LYMPH % 31.9 % (9.0-44.0); LYMPHOCYTE # 2.2 TH/MM3 (1.0-4.8); MEAN CELL VOLUME 83.5 FL (80.0-100.0); MEAN CORPUSCULAR HEMOGLOBIN 27.2 PG (27.0-34.0); MEAN CORPUSCULAR HGB CONC 32.6 % (32.0-36.0); MONO % 16.2 % (0.0-8.0); NEUT % 48.1 % (16.0-70.0); PLATELET COUNT 366 TH/MM3 (150-450); RED BLOOD COUNT 3.68 MIL/MM3 (4.50-5.90); RED CELL DISTRIBUTION WIDTH 15.4 % (11.6-17.2); WHITE BLOOD COUNT 6.8 TH/MM3 (4.0-11.0)
--- NOTE | 2016-12-05 04:24 | RADRPT ---
EXAM DATE/TIME: 12/05/2016 04:15 [facility] COMPARISON: No previous studies available for comparison. INDICATIONS : Trauma, fall. RADIATION DOSE: 40.42 CTDIvol (mGy) MEDICAL HISTORY : Hypertension. SURGICAL HISTORY : None. ENCOUNTER: Initial ACUITY: 1 day PAIN SCALE: 4/10 LOCATION: cranial TECHNIQUE: Multiple contiguous axial images were obtained of the head. Using automated exposure control and adj ustment of the mA and/or kV according to patient size, radiation dose was kept as low as reasonably a chievable to obtain optimal diagnostic quality images. DICOM format image data is available electro nically for review and comparison. FINDINGS: CEREBRUM: The ventricles are normal for age. No evidence of midline shift, mass lesion, hemorrhage or acute in farction. No extra-axial fluid collections are seen. POSTERIOR FOSSA: The cerebellum and brainstem are intact. The 4th ventricle is midline. The cerebellopontine angle i s unremarkable. EXTRACRANIAL: The visualized portion of the orbits is intact. SKULL: The calvaria is intact. No evidence of skull fracture. CONCLUSION: Normal examination. Roland Caba MD on December 05, 2016 at 4:20 Board Certified Radiologist. This report was verified electronically.
--- NOTE | 2016-12-05 04:35 | RADRPT ---
EXAM DATE/TIME: 12/05/2016 04:18 [facility] COMPARISON: CHEST SINGLE AP, June 06, 2016, 16:04. INDICATIONS : Fall tonight. MEDICAL HISTORY : Hypertension. SURGICAL HISTORY : None. ENCOUNTER: Initial ACUITY: 1 day PAIN SCORE: 0/10 LOCATION: Bilateral chest FINDINGS: A single view of the chest demonstrates the lungs to be symmetrically aerated without evidence of mas s, infiltrate or effusion. The cardiomediastinal contours are unremarkable except tortuous aorta. O sseous structures are intact. CONCLUSION: 1. No acute findings. Tortuous aorta. Mild scoliosis. Roland Caba MD on December 05, 2016 at 4:32 Board Certified Radiologist. This report was verified electronically.
[2016-12-05 04:37] LABS: ANION GAP 4 MEQ/L (5-15); AST (GOT) 17 U/L (15-37); BICARBONATE 28.7 MEQ/L (21.0-32.0); BLOOD UREA NITROGEN 20 MG/DL (7-18); CHLORIDE 107 MEQ/L (98-107); GLOMERULAR FILTRATION RATE 60 ML/MIN (>89); POTASSIUM 4.2 MEQ/L (3.5-5.1); SODIUM (NA) 140 MEQ/L (136-145)
[2016-12-05 04:41] LABS: ALKALINE PHOSPHATASE 105 U/L (45-117); ALT (GPT) 42 U/L (12-78); TOTAL BILIRUBIN ADULT 0.2 MG/DL (0.2-1.0)
--- NOTE | 2016-12-05 05:12 | PD ---
HPI Chief Complaint: Fall Time Seen by Provider: 03:51 Travel History International Travel<30 days: No Contact w/Intl Traveler<30days: No Traveled to known affect area: No History of Present Illness HPI 66-year-old black male presents emergency department by EMS for evaluation of weakness and falling. The patient lives at [facility]. The patient is a very poor historian. He states that he does have abdominal discomfort intermittently. He does admit to dark stools. He denies any fever or chills. No nausea vomiting. No chest pain or shortness of breath. The patient then goes on rambling about the facility is stealing his money. He states that he gets $2000 a month and that they do not give him any of his money back. Patient denies any suicidal homicidal ideation. PFS Past Medical History Anxiety: No Depression: Yes (MANIC/ DEPRESSIVE) Cancer: No Cardiovascular Problems: Yes (HTN) Diminished Hearing: No Endocrine: No Hypertension: Yes Tetanus Vaccination: < 5 Years Influenza Vaccination: Yes Past Surgical History Other Surgery: Yes (DENTAL) Social History Alcohol Use: No Tobacco Use: No Substance Use: No Allergies-Medications (Allergen,Severity, Reaction): Coded Allergies: No Known Allergies (Verified , 06/06/16) Reported Meds & Prescriptions Reported Meds & Active Scripts Active Reported Metoprolol Tartrate 25 Mg Tab 25 Mg PO BID Vitamin E 200 Unit Cap 1,000 Units PO DAILY Trihexyphenidyl (Trihexyphenidyl HCl) 2 Mg Tab 1 Mg PO BID Omeprazole 20 Mg Cap 20 Mg PO DAILY Hydroxyzine Pamoate 25 Mg Cap 25 Mg PO TID Haloperidol 10 Mg Tab 10 Mg PO TID Depakote DR (Divalproex Sodium) 500 Mg Tabdr 1,000 Mg PO HS Depakote DR (Divalproex Sodium) 500 Mg Tabdr 500 Mg PO DAILY IN THE AM Amlodipine (Amlodipine Besylate) 10 Mg Tab 10 Mg PO DAILY Amitriptyline (Amitriptyline HCl) 100 Mg Tab 100 Mg PO HS Review of Systems ROS Limitations: Poor Historian Except as stated in HPI: all other systems reviewed are Neg Physical Exam Narrative GENERAL: Well-developed, well-nourished in no apparent distress. Nontoxic appearing. HEAD: Normocephalic, atraumatic. EYES: Pupils equal round and reactive. Extraocular motions intact. No scleral icterus. No injection or drainage. ENT: Nose clear. Throat without erythema, tonsillar hypertrophy or exudate. Uvula midline. Airway patent. NECK: Trachea midline. Supple, nontender, moves head freely. No central bony tenderness or spasm. CARDIOVASCULAR: Regular rate and rhythm without murmurs, gallops, or rubs. RESPIRATORY: Clear to auscultation. Breath sounds equal bilaterally. No wheezes , rales, or rhonchi. GASTROINTESTINAL: Abdomen soft, non-tender, nondistended. No hepato-splenomegaly , or palpable masses. No guarding. : Patient has a right inguinal hernia. Rectal: Dark stools with heme positive Hemoccult no obvious hemorrhoids. EXTREMITIES: No clubbing, cyanosis, or edema. No joint tenderness. BACK: Nontender without deformity. No flank tenderness. NEUROLOGICAL: Awake, alert and oriented x 3 .Cranial nerves grossly intact. Motor and sensory grossly within normal limits. Mumbled speech. Data Data Last Documented VS Vital Signs Date Time Temp Pulse Resp B/P (MAP) Pulse Ox O2 Delivery O2 Flow Rate FiO2 12/05/16 03:55 16 96 Room Air 12/05/16 03:49 98.1 74 113/74 (87) Orders Orders Electrocardiogram (12/05/16 03:51) Complete Blood Count With Diff (12/05/16 03:51) Comprehensive Metabolic Panel (12/05/16 03:51) Urinalysis - C+S If Indicated (12/05/16 03:51) Chest, Single Ap (12/05/16 03:51) Ct Brain W/O Iv Contrast(Rout) (12/05/16 03:51) Iv Access Insert/Monitor (12/05/16 03:51) Ecg Monitoring (12/05/16 03:51) Oximetry (12/05/16 03:51) Valproic Acid (Depakene) (12/05/16 04:11) Prothrombin Time / Inr (Pt) (12/05/16 05:02) Act Partial Throm Time (Ptt) (12/05/16 05:02) Type And Screen (12/05/16 05:02) Pantoprazole Inj (Protonix Inj) (12/05/16 05:15) Sodium Chlor 0.9% 1000 Ml Inj (Ns 1000 M (12/05/16 05:15) Admit Order (Ed Use Only) (12/05/16 05:13) Labs Laboratory Tests Test 12/05/16 04:00 White Blood Count 6.8 TH/MM3 Red Blood Count 3.68 MIL/MM3 Hemoglobin 10.0 GM/DL Hematocrit 30.7 % Mean Corpuscular Volume 83.5 FL Mean Corpuscular Hemoglobin 27.2 PG Mean Corpuscular Hemoglobin Concent 32.6 % Red Cell Distribution Width 15.4 % Platelet Count 366 TH/MM3 Mean Platelet Volume 7.1 FL Neutrophils (%) (Auto) 48.1 % Lymphocytes (%) (Auto) 31.9 % Monocytes (%) (Auto) 16.2 % Eosinophils (%) (Auto) 3.5 % Basophils (%) (Auto) 0.3 % Neutrophils # (Auto) 3.3 TH/MM3 Lymphocytes # (Auto) 2.2 TH/MM3 Monocytes # (Auto) 1.1 TH/MM3 Eosinophils # (Auto) 0.2 TH/MM3 Basophils # (Auto) 0.0 TH/MM3 CBC Comment DIFF FINAL Differential Comment Blood Urea Nitrogen 20 MG/DL Creatinine 1.43 MG/DL Random Glucose 89 MG/DL Total Protein 7.0 GM/DL Albumin 3.1 GM/DL Calcium Level 8.6 MG/DL Alkaline Phosphatase 105 U/L Aspartate Amino Transf (AST/SGOT) 17 U/L Alanine Aminotransferase (ALT/SGPT) 42 U/L Total Bilirubin 0.2 MG/DL Sodium Level 140 MEQ/L Potassium Level 4.2 MEQ/L Chloride Level 107 MEQ/L Carbon Dioxide Level 28.7 MEQ/L Anion Gap 4 MEQ/L Estimat Glomerular Filtration Rate 60 ML/MIN Valproic Acid (Depakene) Level 76 MCG/ML [facility] Medical Decision Making Medical Screen Exam Complete: Yes Emergency Medical Condition: Yes Medical Record Reviewed: Yes Interpretation(s) CBC & BMP Diagram 12/05/16 04:00 Total Protein 7.0, Albumin 3.1 L, Calcium Level 8.6, Alkaline Phosphatase 105, Aspartate Amino Transf (AST/SGOT) 17, Alanine Aminotransferase (ALT/SGPT) 42, Total Bilirubin 0.2 EKG: Sinus rhythm with a ventricular rate of 75. Nonspecific ST-T wave changes. Normal interval. Normal rate. Normal axis. Laboratory Tests Test 12/05/16 04:00 White Blood Count 6.8 TH/MM3 Red Blood Count 3.68 MIL/MM3 Hemoglobin 10.0 GM/DL Hematocrit 30.7 % Mean Corpuscular Volume 83.5 FL Mean Corpuscular Hemoglobin 27.2 PG Mean Corpuscular Hemoglobin Concent 32.6 % Red Cell Distribution Width 15.4 % Platelet Count 366 TH/MM3 Mean Platelet Volume 7.1 FL Neutrophils (%) (Auto) 48.1 % Lymphocytes (%) (Auto) 31.9 % Monocytes (%) (Auto) 16.2 % Eosinophils (%) (Auto) 3.5 % Basophils (%) (Auto) 0.3 % Neutrophils # (Auto) 3.3 TH/MM3 Lymphocytes # (Auto) 2.2 TH/MM3 Monocytes # (Auto) 1.1 TH/MM3 Eosinophils # (Auto) 0.2 TH/MM3 Basophils # (Auto) 0.0 TH/MM3 CBC Comment DIFF FINAL Differential Comment Blood Urea Nitrogen 20 MG/DL Creatinine 1.43 MG/DL Random Glucose 89 MG/DL Total Protein 7.0 GM/DL Albumin 3.1 GM/DL Calcium Level 8.6 MG/DL Alkaline Phosphatase 105 U/L Aspartate Amino Transf (AST/SGOT) 17 U/L Alanine Aminotransferase (ALT/SGPT) 42 U/L Total Bilirubin 0.2 MG/DL Sodium Level 140 MEQ/L Potassium Level 4.2 MEQ/L Chloride Level 107 MEQ/L Carbon Dioxide Level 28.7 MEQ/L Anion Gap 4 MEQ/L Estimat Glomerular Filtration Rate 60 ML/MIN Valproic Acid (Depakene) Level 76 MCG/ML Vital Signs Date Time Temp Pulse Resp B/P (MAP) Pulse Ox O2 Delivery O2 Flow Rate FiO2 12/05/16 03:55 16 96 Room Air 12/05/16 03:49 98.1 74 16 113/74 (28) 96 Differential Diagnosis Differential diagnoses: CVA, bleed, electrolyte abnormality, rectal bleeding, infection, drug toxicity Narrative Course IV access is obtained. Patient's given Protonix 40 mg IV and 1 L bolus of normal saline. Patient's Hemoccult is positive. He has a history of falling and he has dropped 2 g of hemoglobin since his last ER visit. I discussed the case with Dr. Egan who is agreed to admit the patient for observation for repeat H&H and further evaluation of his rectal bleeding and weakness HemaPrompt Point of Care Internal Pos. & Neg. Controls: Passed Fecal Specimen Occult Blood: Positive Diagnosis Primary Impression: GI bleeding Qualified Codes: K92.2 - Gastrointestinal hemorrhage, unspecified Additional Impressions: Rectal bleeding Weakness Admitting Information Admitting Physician Requests: Observation Roland Sibley Dec 05, 2016 05:12
[2016-12-05] MEDS ORDERED: SODIUM CHLORIDE 0.9% FLUSH 10 ML FLUSH IV FLUSH PRN (05:15)
[2016-12-05] MEDS ORDERED: ACETAMINOPHEN/HYDROcodone 325 MG/5 MG TAB PO PRN (05:15)
[2016-12-05] MEDS ORDERED: MORPHINE SULFATE 4 MG/ML INJ IV PUSH PRN (05:15)
[2016-12-05] MEDS ORDERED: MAGNESIUM HYDROXIDE SUSP 30 ML CUP PO PRN (05:15)
[2016-12-05] MEDS ORDERED: LACTULOSE SYRUP 20 GM/30 ML CUP PO PRN (05:15)
[2016-12-05] MEDS ORDERED: SODIUM CHLOR 0.9% 1000 ML INJ 1,000 ML IV ONE (05:15)
[2016-12-05] MEDS ORDERED: ONDANSETRON HCL 4 MG/2 ML VIAL IVP PRN (05:15)
[2016-12-05] MEDS ORDERED: PANTOPRAZOLE SODIUM 40 MG VIAL IV PUSH ONE (05:15)
[2016-12-05] MEDS ORDERED: BISACODYL 10 MG SUPP RECTAL PRN (05:15)
[2016-12-05] MEDS ORDERED: ACETAMINOPHEN 325 MG TAB PO PRN (05:15)
[2016-12-05] MEDS ORDERED: SENNOSIDES 8.6 MG TAB PO PRN (05:15)
--- NOTE | 2016-12-05 05:32 | HHI.HP ---
[facility] Unknown Admission Diagnosis GI bleeding, weakness Diagnoses: (1) GI bleed Diagnosis: Principal (2) Anemia Diagnosis: Principal (3) SRAVAN (acute kidney injury) Diagnosis: Principal (4) Weakness Diagnosis: Principal (5) Bipolar disorder Diagnosis: Principal Travel History International Travel<30 Days: No Contact w/Intl Traveler <30 Da: No Traveled to Known Affected Are: No History of Present Illness This is a 66-year-old male with a PMH of HTN and Bipolar Disorder was brought to ER by EMS secondary to episode of fall while at [facility]. Patient poor historian, unable to provide much detail. Per EMS, pt had fall yesterday afternoon, [facility] reports progressive weakness and recurrent falls. Has no complaints except for intermittent abdominal pain and dark stool. BP T over 74, HR 74, O2 sat 96% on RA, Afebrile. Hemoglobin 10, previously 12 on 06/09/16. Creatinine 1.43, produces 0.97 06/09/16. CT Head with no acute findings. CXR negative. On exam, Hemoccult grossly+. S/p Protonix, Type & Screen Review of Systems Except as stated in HPI: all other systems reviewed are Neg ROS: 14 point review of systems otherwise negative. Past Family Social History Past Medical History PMH: HTN and Bipolar Disorder Past Surgical History PAST SURGICAL HISTORY: Dental Surgery Allergies: Coded Allergies: No Known Allergies (Verified , 06/06/16) Family History PAST FAMILY HISTORY: Reviewed. No h/o DM or CAD Social History PAST SOCIAL HISTORY: Negative for alcohol, tobacco or drugs. Physical Exam Vital Signs Vital Signs Date Time Temp Pulse Resp B/P (MAP) Pulse Ox O2 Delivery O2 Flow Rate FiO2 12/05/16 03:55 16 96 Room Air 12/05/16 03:49 98.1 74 16 113/74 (87) 96 Physical Exam PE: GENERAL: Middle-aged male in no acute distress. HEENT: PERRLA, EOMI. No scleral icterus or conjunctival pallor. No lid lag or facial droop. CARDIOVASCULAR: Regular rate and rhythm. No obvious murmurs to auscultation. No chest tenderness to palpation. RESPIRATORY: No obvious rhonchi or wheezing. Clear to auscultation. Breath sounds equal bilaterally. GASTROINTESTINAL: Abdomen soft, non-tender, nondistended. BS normal. MUSCULOSKELETAL: Extremities without clubbing, cyanosis, or edema. No obvious deformities. NEUROLOGICAL: Awake, alert and oriented x4. No focal neurologic deficits. Moving both upper and lower extremities spontaneously. Laboratory Laboratory Tests Test 12/05/16 04:00 12/05/16 05:10 White Blood Count 6.8 Red Blood Count 3.68 Hemoglobin 10.0 Hematocrit 30.7 Mean Corpuscular Volume 83.5 Mean Corpuscular Hemoglobin 27.2 Mean Corpuscular Hemoglobin Concent 32.6 Red Cell Distribution Width 15.4 Platelet Count 366 Mean Platelet Volume 7.1 Neutrophils (%) (Auto) 48.1 Lymphocytes (%) (Auto) 31.9 Monocytes (%) (Auto) 16.2 Eosinophils (%) (Auto) 3.5 Basophils (%) (Auto) 0.3 Neutrophils # (Auto) 3.3 Lymphocytes # (Auto) 2.2 Monocytes # (Auto) 1.1 Eosinophils # (Auto) 0.2 Basophils # (Auto) 0.0 CBC Comment DIFF FINAL Differential Comment Blood Urea Nitrogen 20 Creatinine 1.43 Random Glucose 89 Total Protein 7.0 Albumin 3.1 Calcium Level 8.6 Alkaline Phosphatase 105 Aspartate Amino Transf (AST/SGOT) 17 Alanine Aminotransferase (ALT/SGPT) 42 Total Bilirubin 0.2 Sodium Level 140 Potassium Level 4.2 Chloride Level 107 Carbon Dioxide Level 28.7 Anion Gap 4 Estimat Glomerular Filtration Rate 60 Valproic Acid (Depakene) Level 76 Result Diagram: 12/05/1639912/05/16399 Caprini VTE Risk Assessment Caprini VTE Risk Assessment: No/Low Risk (score <= 1) VTE Pharm Contraindication: Active bleeding Caprini Risk Assessment Model Point Value = 1 Point Value = 2 Point Value = 3 Point Value = 5 Age 41-60 Minor surgery BMI > 25 kg/m2 Swollen legs Varicose veins or History of unexplained or recurrent spontaneous Oral contraceptives or hormone replacement Sepsis (< 1 month) Serious lung disease, including pneumonia (< 1 month) Abnormal pulmonary function Acute myocardial infarction Congestive heart failure (< 1 month) History of inflammatory bowel disease Medical patient at bed rest Age 61-74 Arthroscopic surgery Major open surgery (> 45 min) Laparoscopic surgery (> 45 min) Malignancy Confined to bed (> 72 hours) Immobilizing plaster cast Central venous access Age >= 75 History of VTE Family history of VTE Factor V Leiden Prothrombin [id number] Lupus anticoagulant Anticardiolipin antibodies Elevated serum homocysteine Heparin-induced thrombocytopenia Other congenital or acquired thrombophilia Stroke (< 1 month) Elective arthroplasty Hip, pelvis, or leg fracture Acute spinal cord injury (< 1 month) Prophylaxis Regimen Total Risk Factor Score Risk Level Prophylaxis Regimen 0-1 Low Early ambulation 2 Moderate Order ONE of the following: *Sequential Compression Device (SCD) *Heparin 5000 units SQ BID 3-4 Higher Order ONE of the following medications: *Heparin 5000 units SQ TID *Enoxaparin/Lovenox 40 mg SQ daily (WT < 150 kg, CrCl > 30 mL/min) *Enoxaparin/Lovenox 30 mg SQ daily (WT < 150 kg, CrCl > 10-29 mL/min) *Enoxaparin/Lovenox 30 mg SQ BID (WT < 150 kg, CrCl > 30 mL/min) AND/OR *Sequential Compression Device (SCD) 5 or more Highest Order ONE of the following medications: *Heparin 5000 units SQ TID (Preferred with Epidurals) *Enoxaparin/Lovenox 40 mg SQ daily (WT < 150 kg, CrCl > 30 mL/min) *Enoxaparin/Lovenox 30 mg SQ daily (WT < 150 kg, CrCl > 10-29 mL/min) *Enoxaparin/Lovenox 30 mg SQ BID (WT < 150 kg, CrCl > 30 mL/min) AND *Sequential Compression Device (SCD) Assessment and Plan Problem List: (1) GI bleed ICD Code: K92.2 - Gastrointestinal hemorrhage, unspecified (2) Anemia ICD Code: D64.9 - Anemia, unspecified (3) SRAVAN (acute kidney injury) ICD Code: N17.9 - Acute kidney failure, unspecified Status: Acute (4) Bipolar disorder ICD Code: F31.9 - Bipolar disorder, unspecified Status: Acute (5) Weakness ICD Code: R53.1 - Weakness Status: Acute Assessment and Plan A/P: 1. GI Bleed: c/o intermittent abdominal pain and associated melena, Hemoccult + on exam. S/p Protonix in ER, will continue w/ Protonix IV, Consult GI, repeat Hgb/Hct for trend. Transfuse as needed for Hgb <8 2. Anemia: secondary to above. Hgb 10.0, previously 12.0 on 06/19/16. Type & Screen, transfuse as needed. 3. SRAVAN: Creatinine 1.43, produces 0.97 on 06/09/16. IVF for hydration, repeat labs in am. 4. Weakness: likely multifactorial-GI Bleed/Anemia and deconditioning. PT for eval/tx. 5. DVT Prophylaxis: Pharmacologic contraindication secondary to active bleeding. 6. Social work for d/c planning as needed. 7. Case discussed w/ ER physician at length. Aracelis Wilder MD Dec 05, 2016 05:32
[2016-12-05 05:39] LABS: APTT (PATIENT) 29.2 SEC (24.3-30.1)
[2016-12-05 06:24] LABS: BLOOD, URINE NEG (NEG); COMMENT (UR) CULT NOT INDICATED; CULTURE IF INDICATED CULT NOT INDICATED; GLUCOSE,URINE NEG (NEG); KETONE, URINE NEG (NEG); NITRITE,URINE NEG (NEG); URINE COLOR LIGHT-YELLOW (YELLW/STRAW)
--- NOTE | 2016-12-05 07:01 | EKG ---
Date Performed: 12/05/2016 Time Performed: 04:09:46 PTAGE: 66 years EKG: Sinus rhythm NONSPECIFIC T-WAVE ABNORMALITY BORDERLINE ECG NO PREVIOUS TRACING DOCTOR: Kevin Colbert Interpretating Date/Time 12/05/2016 07:01:10
--- NOTE | 2016-12-05 07:42 | PD.CONS ---
HPI History of Present Illness This is a 66 year old male who presented to the emergency room for evaluation of generalized weakness and frequent falls and was admitted for SIRS, generalized weakness, diarrhea, and acute kidney injury. GI has been consulted for hemocele positive stool. He is a poor historian. There is some mention of recent diarrhea in the EMR, but the patient tells me that he had diarrhea the last time he was here, but is no longer having this. He states that his appetite is good and he has not lost any weight. He denies any fever or chills , nausea, vomiting, reflux, heartburn, abdominal pain. He does report that his stools have been dark, but he is not able to further describe this or state how long he has been having this. He has not seen any red blood mixed within his stools. He does not believe that he takes any blood thinners or NSAIDs. He has never had an EGD or colonoscopy. His mother is his next of kin, Sameera Aaron , . Attempted to call at both numbers to discuss further evaluation of hemoccult positive stool, as he does not seem to understand his hospitalization or able to make a decision. There was no answer at either numbers. (Ally Tang) PFSH Past Medical History HTN Bipolar/Adjustment D/O Hyperlipidemia Past Surgical History Dental Surgery (Ally Tang) Coded Allergies: No Known Allergies (Verified , 06/06/16) Medications Allergies Coded Allergies Type Severity Reaction Last Updated Verified No Known Allergies 06/06/16 Yes Active Scripts Medications Dose Route/Sig Max Daily Dose Days Date Category Metoprolol Tartrate 25 Mg Tab 25 Mg PO BID 12/05/16 Reported Vitamin E 200 Unit Cap 1,000 Units PO DAILY 12/05/16 Reported Trihexyphenidyl (Trihexyphenidyl HCl) 2 Mg Tab 1 Mg PO BID 06/06/16 Reported Omeprazole 20 Mg Cap 20 Mg PO DAILY 06/06/16 Reported Hydroxyzine Pamoate 25 Mg Cap 25 Mg PO TID 06/06/16 Reported Haloperidol 10 Mg Tab 10 Mg PO TID 06/06/[address] (Divalproex Sodium) 500 Mg Tabdr 1,000 Mg PO HS 06/06/[address] (Divalproex Sodium) 500 Mg Tabdr 500 Mg PO DAILY IN THE AM 06/06/16 Reported Amlodipine (Amlodipine Besylate) 10 Mg Tab 10 Mg PO DAILY 06/06/16 Reported Amitriptyline (Amitriptyline HCl) 100 Mg Tab 100 Mg PO HS 06/06/16 Reported Family History Noncontributory Social History No use of tobacco, etoh, illicit drug use. (Ally Tang) Review of Systems Constitutional: DENIES: Fever, Weight loss, Chills, Change in appetite Respiratory: DENIES: Cough, Shortness of breath Cardiovascular: DENIES: Chest pain Gastrointestinal: COMPLAINS OF: Black stools, Diarrhea (pt denies), DENIES: Abdominal pain, Bloody stools, Constipation, Nausea, Vomiting, Swelling of Abdomen, Heartburn, Hematemesis Musculoskeletal: DENIES: Back pain Integumentary: DENIES: Abnormal pigmentation Neurologic: DENIES: Headache Psychiatric: COMPLAINS OF: Confusion (Ally Tang) GI Exam Vitals I&O Vital Signs Date Time Temp Pulse Resp B/P (MAP) Pulse Ox O2 Delivery O2 Flow Rate FiO2 12/05/16 07:28 98.6 78 16 132/82 (99) 95 12/05/16 03:55 16 96 Room Air 12/05/16 03:49 98.1 74 16 113/74 (87) 96 Laboratory Test 12/05/16 04:00 12/05/16 05:10 12/05/16 05:55 White Blood Count 6.8 TH/MM3 Red Blood Count 3.68 MIL/MM3 Hemoglobin 10.0 GM/DL Hematocrit 30.7 % Mean Corpuscular Volume 83.5 FL Mean Corpuscular Hemoglobin 27.2 PG Mean Corpuscular Hemoglobin Concent 32.6 % Red Cell Distribution Width 15.4 % Platelet Count 366 TH/MM3 Mean Platelet Volume 7.1 FL Neutrophils (%) (Auto) 48.1 % Lymphocytes (%) (Auto) 31.9 % Monocytes (%) (Auto) 16.2 % Eosinophils (%) (Auto) 3.5 % Basophils (%) (Auto) 0.3 % Neutrophils # (Auto) 3.3 TH/MM3 Lymphocytes # (Auto) 2.2 TH/MM3 Monocytes # (Auto) 1.1 TH/MM3 Eosinophils # (Auto) 0.2 TH/MM3 Basophils # (Auto) 0.0 TH/MM3 CBC Comment DIFF FINAL Differential Comment Blood Urea Nitrogen 20 MG/DL Creatinine 1.43 MG/DL Random Glucose 89 MG/DL Total Protein 7.0 GM/DL Albumin 3.1 GM/DL Calcium Level 8.6 MG/DL Alkaline Phosphatase 105 U/L Aspartate Amino Transf (AST/SGOT) 17 U/L Alanine Aminotransferase (ALT/SGPT) 42 U/L Total Bilirubin 0.2 MG/DL Sodium Level 140 MEQ/L Potassium Level 4.2 MEQ/L Chloride Level 107 MEQ/L Carbon Dioxide Level 28.7 MEQ/L Anion Gap 4 MEQ/L Estimat Glomerular Filtration Rate 60 ML/MIN Valproic Acid (Depakene) Level 76 MCG/ML Prothrombin Time 11.0 SEC Prothromb Time International Ratio 1.0 RATIO Activated Partial Thromboplast Time 29.2 SEC Urine Color LIGHT-YELLOW Urine Turbidity CLEAR Urine pH 6.0 Urine Specific Bruin 1.015 Urine Protein NEG mg/dL Urine Glucose (UA) NEG mg/dL Urine Ketones NEG mg/dL Urine Occult Blood NEG Urine Nitrite NEG Urine Bilirubin NEG Urine Urobilinogen LESS THAN 2.0 MG/DL Urine Leukocyte Esterase NEG Urine WBC LESS THAN 1 /hpf Microscopic Urinalysis Comment CULT NOT INDICATED Physical Examination HEENT: Normocephalic; atraumatic; no jaundice. CHEST: CTA CARDIAC: RRR ABDOMEN: Soft, nondistended, nontender; no hepatosplenomegaly; bowel sounds are present in all four quadrants. EXTREMITIES: No clubbing, cyanosis, or edema. SKIN: Normal; no rash; no jaundice. PARIMUTUEL TICKET SELLER: No focal deficits; alert and oriented to person (Ally Tang) Assessment and Plan Plan ASSESSMENT: - Hemoccult positive stool. Pt does report that he has had some dark stool. He denies any other GI issues. 10.0.7. - Anemia, acute blood loss. .0.7. - ? Diarrhea. There is mention of this in EMR, but patient denies and states that he had this during a different hospital visit. Nurse reports that he had a bowel movement yesterday, but none for her. CDiff (-). - SRAVAN. Creatinine 1.43. IVF. Per attending. - Bipolar d/o. Per attending. PLAN: - RADHA - PPI - Monitor - Transfuse as necessary - Stool studies - Need to speak to mother re: evaluation with egd/colonoscopy. I called both listed numbers and there was no answer. - Pt seen and examined by Dr. Graves and myself and this note is written on his behalf 12:53pm Mother returned call, discussed egd/colonoscopy, risks, benefits and she would like to proceed. Will d/w Dr. Graves the timing of this. (Ally Tang) Plan Patient was seen and examined, agree with above-noted, we are trying to wait for patient mom to see if she would like us to proceed with an upper endoscopy and colonoscopy on the patient (Yesi Graves MD) Ally Tang Dec 05, 2016 07:42 Yesi Graves MD Dec 05, 2016 17:32
[2016-12-05] MEDS: DOCUSATE SODIUM 50 MG/SENNA 8.6 MG TAB PO SCH ×2 (10:29→20:24)
[2016-12-05] MEDS: SODIUM CHLORIDE 0.9% FLUSH 10 ML FLUSH IV FLUSH SCH ×2 (10:29→21:00)
[2016-12-05] MEDS: DIVALPROEX DR 500 MG TABEC PO SCH ×2 (10:30→20:59)
[2016-12-05] MEDS: HALOPERIDOL 10 MG TAB PO SCH ×3 (10:30→17:58)
[2016-12-05] MEDS: TRIHEXYPHENIDYL HCL 2 MG TAB PO SCH ×2 (11:21→20:59)
[2016-12-05] MEDS ORDERED: PEG (High)/E-LYTE SOLN 4000 ML BTL PO ONE (16:00)
[2016-12-05] MEDS ORDERED: cloNIDine HCL 0.1 MG TAB PO PRN (18:30)
[2016-12-05] MEDS: AMITRIPTYLINE HCL 100 MG TAB PO SCH (20:59)
[2016-12-05] MEDS: PANTOPRAZOLE SODIUM 40 MG VIAL IV PUSH SCH (20:59)
[2016-12-05] MEDS: METOPROLOL TARTRATE 25 MG TAB PO SCH (20:59)
[2016-12-06 03:27] VITALS: BP 145/80; PULSE 89; RESP 18; TEMP 98.3; O2SAT 98
[2016-12-06 07:05] VITALS: BP 132/85; PULSE 81; RESP 18; TEMP 97.8; O2SAT 96
[2016-12-06 07:45] VITALS: PULSE 82
--- NOTE | 2016-12-06 08:01 | HHI.PR ---
Subjective Remarks Follow-up for fall/weakness and GI bleed. The patient is going for EGD and colonoscopy today, he has questions about the procedure. He states he completed the bowel prep. Yesterday he was able to tolerate oral intake with no issues. He denies any abdominal pain. Objective Vitals Vital Signs Date Time Temp Pulse Resp B/P (MAP) Pulse Ox O2 Delivery O2 Flow Rate FiO2 12/06/16 07:05 97.8 81 18 132/85 (101) 96 12/06/16 03:27 98.3 89 18 145/80 (101) 98 12/05/16 23:55 95 12/05/16 23:45 98.3 86 18 140/80 (100) 97 12/05/16 20:44 98.2 85 18 159/102 (121) 96 12/05/16 17:44 160/88 (112) 12/05/16 17:24 98.5 96 16 161/93 (115) 96 12/05/16 16:00 94 12/05/16 12:24 79 12/05/16 11:20 97.9 100 16 99/62 (74) 99 I/O 12/05/16 12/05/16 12/05/16 12/06/16 12/06/16 12/06/16 07:00 15:00 23:00 07:00 15:00 23:00 Intake Total 1000 ml Balance 1000 ml Intake IV Total 1000 ml # Voids 2 Result Diagram: 12/05/16 0400 12/05/16 0400 Imaging Last Impressions Head CT 12/05/16350 Signed Impressions: Service Date/Time: Monday, December 05, 2016 04:15 - CONCLUSION: Normal examination. Roland Caba MD Chest X-Ray 12/05/16350 Signed Impressions: Service Date/Time: Monday, December 05, 2016 04:18 - CONCLUSION: 1. No acute findings. Tortuous aorta. Mild scoliosis. Roland Caba MD Objective Remarks GENERAL: Well-developed well-nourished. In no acute distress. SKIN: Warm and dry. No lesions noted. HEENT: Normocephalic. Pupils equal and round. Mucous membranes pink and moist. CARDIOVASCULAR: Regular rate and rhythm. No murmur appreciated. RESPIRATORY: No accessory muscle use. Clear to auscultation. Breath sounds equal bilaterally. GASTROINTESTINAL: Abdomen soft, non-tender, nondistended. Bowel sounds x4. MUSCULOSKELETAL: No obvious deformities. No clubbing or cyanosis. No edema. NEUROLOGICAL: Awake and alert. No focal neurological deficits. Moves upper and lower extremities spontaneously. Normal speech. PSYCHIATRIC: Appropriate mood and odd affect; insight and judgment fair. A/P Problem List: (1) GI bleed ICD Code: K92.2 - Gastrointestinal hemorrhage, unspecified Status: Acute (2) Anemia ICD Code: D64.9 - Anemia, unspecified Status: Acute (3) SRAVAN (acute kidney injury) ICD Code: N17.9 - Acute kidney failure, unspecified Status: Acute (4) Bipolar disorder ICD Code: F31.9 - Bipolar disorder, unspecified Status: Chronic (5) Weakness ICD Code: R53.1 - Weakness Status: Acute Assessment and Plan 66-year-old male with a PMH of HTN and Bipolar Disorder was sent from [facility], secondary to episode of fall GI Bleed: Hemoccult + on exam. Continue w/ Protonix IV. Consulted GI, planning on EGD/colonoscopy. Normocytic Anemia: secondary to acute blood loss from above. Hgb 10.0, previously 12.0 on 06/19/16. Valproic acid within normal limits. Repeat CBC pending. SRAVAN: Creatinine 1.43, previously 0.97 on 06/09/16. IVF. Repeat labs today pending. Weakness: likely multifactorial-GI Bleed/Anemia, dehydration, and deconditioning. PT consulted, recommends HHC at [facility]. Bipolar disorder: Chronic, stable. Continue Depakote, amitriptyline, Haldol, hydroxyzine, trihexyphenidyl. Hypertension: Chronic, stable. Continue amlodipine and metoprolol. Monitor. DVT Prophylaxis: Pharmacologic contraindication secondary to active bleeding. SCDs. Discharge Planning Follow-up GI recommendations after EGD/colonoscopy. Will go back to [facility] with HHC at discharge. Problem Qualifiers (1) Anemia: Qualified Codes: D64.9 - Anemia, unspecified Terry Black Dec 06, 2016 08:01
[2016-12-06] MEDS: PANTOPRAZOLE SODIUM 40 MG VIAL IV PUSH SCH ×2 (08:03→20:50)
[2016-12-06] MEDS: DIVALPROEX DR 500 MG TABEC PO SCH ×2 (08:03→20:51)
[2016-12-06] MEDS: HALOPERIDOL 10 MG TAB PO SCH ×3 (08:03→18:25)
[2016-12-06] MEDS: METOPROLOL TARTRATE 25 MG TAB PO SCH ×2 (08:04→20:51)
[2016-12-06] MEDS: SODIUM CHLORIDE 0.9% FLUSH 10 ML FLUSH IV FLUSH SCH ×2 (08:04→20:50)
[2016-12-06] MEDS: DOCUSATE SODIUM 50 MG/SENNA 8.6 MG TAB PO SCH ×2 (08:04→20:51)
[2016-12-06] MEDS: TRIHEXYPHENIDYL HCL 2 MG TAB PO SCH ×2 (08:04→20:50)
[2016-12-06 08:10] LABS: AUTOMATED NEUTROPHIL # 4.3 TH/MM3 (1.8-7.7); BASOPHIL % 0.5 % (0.0-2.0); EOSINOPHIL # 0.2 TH/MM3 (0-0.4); EOSINOPHIL % 2.3 % (0.0-4.0); HEMATOCRIT 32.8 % (39.0-51.0); HEMO FLAGS DIFF FINAL; LYMPH % 22.1 % (9.0-44.0); LYMPHOCYTE # 1.6 TH/MM3 (1.0-4.8); MEAN CELL VOLUME 83.6 FL (80.0-100.0); MEAN CORPUSCULAR HEMOGLOBIN 26.8 PG (27.0-34.0); MEAN CORPUSCULAR HGB CONC 32.1 % (32.0-36.0); MONO % 14.5 % (0.0-8.0); NEUT % 60.6 % (16.0-70.0); PLATELET COUNT 385 TH/MM3 (150-450); RED BLOOD COUNT 3.92 MIL/MM3 (4.50-5.90); RED CELL DISTRIBUTION WIDTH 15.3 % (11.6-17.2); WHITE BLOOD COUNT 7.2 TH/MM3 (4.0-11.0)
[2016-12-06] MEDS: SODIUM CHLOR 0.9% 1000 ML INJ 1,000 ML IV SCH ×2 (08:14→20:50)
[2016-12-06 08:39] LABS: ANION GAP 7 MEQ/L (5-15); AST (GOT) 24 U/L (15-37); BICARBONATE 28.8 MEQ/L (21.0-32.0); BLOOD UREA NITROGEN 13 MG/DL (7-18); CHLORIDE 106 MEQ/L (98-107); GLOMERULAR FILTRATION RATE 69 ML/MIN (>89); POTASSIUM 4.3 MEQ/L (3.5-5.1); SODIUM (NA) 142 MEQ/L (136-145)
[2016-12-06 08:40] LABS: ALT (GPT) 45 U/L (12-78)
[2016-12-06 08:44] LABS: ALKALINE PHOSPHATASE 113 U/L (45-117); TOTAL BILIRUBIN ADULT 0.2 MG/DL (0.2-1.0)
[2016-12-06] MEDS: hydrOXYzine PAMOATE 25 MG CAP PO SCH ×3 (09:00→18:25)
[2016-12-06] MEDS ORDERED: BISACODYL EC 5 MG TABEC PO ONE (11:30)
[2016-12-06] MEDS ORDERED: MAGNESIUM CITRATE SOLN 300 ML BTL PO ONE (11:30)
--- NOTE | 2016-12-06 11:31 | GIPROC ---
[facility] [address] [facility]. [facility], [id number] EGD PROCEDURE REPORT EXAM DATE: 12/06/2016 PATIENT NAME: Guanako Aaron MR #: [id number] BIRTHDATE: 1950 ATTENDING: Cara Ventura MD ORDER #: [id number] COLORING CHECKER: Martín Chavez and Lin Blue STATUS: inpatient INDICATIONS: The patient is a 66 yr old male here for an EGD due to diarrhea, anemia PROCEDURE PERFORMED: EGD w/ biopsy MEDICATIONS: None and Per Anesthesia. TOPICAL ANESTHETIC: none CONSENT: The patient understands the risks and benefits of the procedure and understands that these risks include, but are not limited to: sedation, allergic reaction, infection, perforation and/or bleeding. Alternative means of evaluation and treatment include, among others: physical exam, x-rays, and/or surgical intervention. The patient elects to proceed with this endoscopic procedure. medical equipment was checked for proper function. Hand hygiene and appropriate measures for infection prevention was taken. After the risks, benefits and alternatives of the procedure were thoroughly explained, Informed consent was verified, confirmed and timeout was successfully executed by the treatment team. The patient was anesthetized with topical anesthesia and the EC-[id number] (Pedi C) endoscope was introduced through the mouth and advanced to the second portion of the duodenum. Retroflexed views revealed a hiatal hernia The gastroscope was then slowly withdrawn and removed. Gastritis antrum-biopsy esophagitis distal esophagus-biopsy. ADVERSE EVENTS: There were no complications. IMPRESSIONS: 1. Gastritis antrum-biopsy esophagitis distal esophagus-biopsy 2. Retroflexed views revealed a hiatal hernia RECOMMENDATIONS: 1. Await biopsy results. Biopsy results will not be ready for 7-10 days. If you don't hear from us in two weeks, call our office for biopsy results. 2. Anti-reflux regimen 3. Continue PPI PATIENT CONDITION: stable DISPOSITION: Inpatient REPEAT EXAM: EGD pending biopsy results Cara Ventura MD eSigned: Cara Ventura MD 12/06/2016 11:31 AM cc:
--- NOTE | 2016-12-06 11:34 | GIPROC ---
[facility] [address] [facility]. [facility], [address] COLONOSCOPY PROCEDURE REPORT EXAM DATE: 12/06/2016 PATIENT NAME: Guanako Aaron MR #: [id number] BIRTHDATE: 1950 ENDOSCOPIST: Cara Ventura MD ORDER #: [id number] TELEVISION AUDIO ENGINEER: Martín Chavez and Lin Blue STATUS: inpatient INDICATIONS: The patient is a 66 yr old male here for a colonoscopy due to anemia PROCEDURE PERFORMED: Colonoscopy, incomplete MEDICATIONS: None and Per Anesthesia. PREP QUALITY: poor ESTIMATED BLOOD LOSS: None CONSENT: The patient understands the risks and benefits of the procedure and understands that these risks include, but are not limited to: sedation, allergic reaction, infection, perforation and/or bleeding. Alternative means of evaluation and treatment include, among others: physical exam, x-rays, and/or surgical intervention. The patient elects to proceed with this endoscopic procedure. medical equipment was checked for proper function. Hand hygiene and appropriate measures for infection prevention was taken. After the risks, benefits and alternatives of the procedure were thoroughly explained, Informed consent was verified, confirmed and timeout was successfully executed by the treatment team. A digital exam revealed external hemorrhoids The Pentax EC-[id number] endoscope was introduced through the anus and advanced to the mid transverse colon. The instrument was then slowly withdrawn as the colon was fully examined. COLON FINDINGS: Poor prep. Retroflexed views revealed internal hemorrhoids and Retroflexed views revealed small internal hemorrhoids The scope was then completely withdrawn from the patient and the procedure terminated. ADVERSE EVENTS: There were no complications. IMPRESSIONS: 1. Poor prep 2. Retroflexed views revealed internal hemorrhoids 3. Retroflexed views revealed small internal hemorrhoids 4. Revealed external hemorrhoids RECOMMENDATIONS: Clera liquid today colon in am better prep npo after midnight RECALL: Return 1 year Colonoscopy Cara Ventura MD eSigned: Cara Ventura MD 12/06/2016 11:33 AM cc:
[2016-12-06] MEDS ORDERED: PROPOFOL 200 MG/20 ML AMP IV ONE (12:00)
[2016-12-06] MEDS ORDERED: LIDOCAINE HCL 1% PF 5 ML AMPULE OTHER ONE (12:00)
[2016-12-06 15:03] LABS: TRANSFERRIN IRON PROFILE 309 MG/DL (200-360)
[2016-12-06 15:06] LABS: FERRITIN 8 NG/ML (26-388)
[2016-12-06 15:10] VITALS: BP 121/73; PULSE 80; RESP 19; TEMP 97.5; O2SAT 94
[2016-12-06] MEDS ORDERED: IRON SUCROSE INJ 100 MG in SODIUM CHLORIDE 0.9% INJ 100 ML IV ONE (16:00)
[2016-12-06 16:44] VITALS: PULSE 79
[2016-12-06 19:46] VITALS: BP 135/70; PULSE 67; RESP 18; TEMP 99; O2SAT 95
[2016-12-06] MEDS: AMITRIPTYLINE HCL 100 MG TAB PO SCH (20:51)
[2016-12-07] VITALS (8 sets, daily range): BP systolic 88–140; BP diastolic 52–95; PULSE 68–109; RESP 17–20; TEMP 97.5–98.9; O2SAT 96–100
[2016-12-07] MEDS: SODIUM CHLOR 0.9% 1000 ML INJ 1,000 ML IV SCH ×2 (07:50→21:02)
[2016-12-07] MEDS: DOCUSATE SODIUM 50 MG/SENNA 8.6 MG TAB PO SCH ×2 (09:00→21:00)
[2016-12-07] MEDS ORDERED: DO NOT ADM ANY ANTICOAGULANT DRUGS PRN (10:12)
--- NOTE | 2016-12-07 10:26 | GIPROC ---
[facility] [address] [facility]. [facility], [address] COLONOSCOPY PROCEDURE REPORT EXAM DATE: 12/07/2016 PATIENT NAME: Guanako Aaron MR #: [id number] BIRTHDATE: 1950 ENDOSCOPIST: Cara Ventura MD ORDER #: [id number] CERTIFIED MORTICIAN: Johnny Davis and Raymundo Patino STATUS: inpatient INDICATIONS: The patient is a 66 yr old male here for a colonoscopy due to anemia PROCEDURE PERFORMED: Colonoscopy with biopsy MEDICATIONS: Per Anesthesia and None. PREP QUALITY: good PREP TYPE:Other: ESTIMATED BLOOD LOSS: None CONSENT: The patient understands the risks and benefits of the procedure and understands that these risks include, but are not limited to: sedation, allergic reaction, infection, perforation and/or bleeding. Alternative means of evaluation and treatment include, among others: physical exam, x-rays, and/or surgical intervention. The patient elects to proceed with this endoscopic procedure. medical equipment was checked for proper function. Hand hygiene and appropriate measures for infection prevention was taken. After the risks, benefits and alternatives of the procedure were thoroughly explained, Informed consent was verified, confirmed and timeout was successfully executed by the treatment team. A digital exam revealed external hemorrhoids The Pentax EC-[id number] endoscope was introduced through the anus and advanced to the hepatic flexure. The instrument was then slowly withdrawn as the colon was fully examined. COLON FINDINGS: Mass hepatic flexure , bleeding, could not advance scopse further biopsies genesis ink injected -5 cc semisolid stool. Diverticulosis. Retroflexed views revealed internal hemorrhoids and Retroflexed views revealed small internal hemorrhoids The scope was then completely withdrawn from the patient and the procedure terminated. PROCEDURE WITHDRAWAL TIME:6minutes ADVERSE EVENTS: There were no complications. IMPRESSIONS: 1. Mass hepatic flexure , bleeding, could not advance scopse further biopsies genesis ink injected -5 cc semisolid stool 2. Retroflexed views revealed internal hemorrhoids 3. Retroflexed views revealed small internal hemorrhoids 4. Revealed external hemorrhoids RECOMMENDATIONS: 1. Await biopsy results. Biopsy results will not be ready for 7-10 days. If you don't hear from us in two weeks, call our office for results. 2. Probiotics from any [employer] or [employer] food store 3. Cea level consult surgery ct abdomen/pelvis if not done RECALL: Colonoscopy, pending biopsy results Cara Ventura MD eSigned: Cara Ventura MD 12/07/2016 10:26 AM cc: PATIENT NAME: Guanako aAron MR#: [id number]
--- NOTE | 2016-12-07 11:44 | HHI.PR ---
Subjective Remarks Follow-up for fall, weakness, and rectal bleeding. The patient is seen after colonoscopy today brain mass was found at the hepatic flexure. He is doing well this time. He denies any abdominal pain or rectal bleeding. He wants to eat. He was informed of the colonoscopy findings and is agreeable for CT scan and colorectal surgery evaluation. Objective Vitals Vital Signs Date Time Temp Pulse Resp B/P (MAP) Pulse Ox O2 Delivery O2 Flow Rate FiO2 12/07/16 10:57 97.5 74 20 133/95 (108) 98 12/07/16 10:40 89 14 120/89 (99) 98 Room Air 12/07/16 10:30 89 14 115/81 (92) 100 Nasal Cannula 2 12/07/16 10:14 97.5 91 14 116/80 (92) 100 Nasal Cannula 4 12/07/16 08:00 79 12/07/16 07:09 97.6 79 20 134/87 (103) 96 12/07/16 03:14 98.9 68 18 138/82 (100) 98 12/07/16 00:19 98.9 68 18 140/80 (100) 96 12/06/16 19:46 99.0 67 18 135/70 (91) 95 Manual Cuff/Auscultation 12/06/16 16:44 79 12/06/16 15:10 97.5 80 19 121/73 (89) 94 I/O 12/06/16 12/06/16 12/06/16 12/07/16 12/07/16 12/07/16 07:00 15:00 23:00 07:00 15:00 23:00 Intake Total 450 ml 100 ml 300 ml Balance 450 ml 100 ml 300 ml Intake IV Total 100 ml 300 ml Other 450 ml # Voids 2 Result Diagram: 12/06/16 0750 12/06/16 075 Imaging Last Impressions Head CT 12/05/16350 Signed Impressions: Service Date/Time: Monday, December 05, 2016 04:15 - CONCLUSION: Normal examination. Roland Caba MD Chest X-Ray 12/05/16350 Signed Impressions: Service Date/Time: Monday, December 05, 2016 04:18 - CONCLUSION: 1. No acute findings. Tortuous aorta. Mild scoliosis. Roland Caba MD Objective Remarks GENERAL: Well-developed well-nourished. In no acute distress. SKIN: Warm and dry. No lesions noted. HEENT: Normocephalic. Pupils equal and round. Mucous membranes pink and moist. CARDIOVASCULAR: Regular rate and rhythm. No murmur appreciated. RESPIRATORY: No accessory muscle use. Clear to auscultation. Breath sounds equal bilaterally. GASTROINTESTINAL: Abdomen soft, non-tender, nondistended. Bowel sounds x4. MUSCULOSKELETAL: No obvious deformities. No clubbing or cyanosis. No edema. NEUROLOGICAL: Awake and alert. No focal neurological deficits. Moves upper and lower extremities spontaneously. Normal speech. PSYCHIATRIC: Appropriate mood and odd affect; insight and judgment fair. A/P Problem List: (1) GI bleed ICD Code: K92.2 - Gastrointestinal hemorrhage, unspecified Status: Acute (2) Anemia ICD Code: D64.9 - Anemia, unspecified Status: Acute (3) SRAVAN (acute kidney injury) ICD Code: N17.9 - Acute kidney failure, unspecified Status: Acute (4) Bipolar disorder ICD Code: F31.9 - Bipolar disorder, unspecified Status: Chronic (5) Weakness ICD Code: R53.1 - Weakness Status: Acute Assessment and Plan 66-year-old male with a PMH of HTN and Bipolar Disorder was sent from [facility], secondary to episode of fall GI Bleed: Hemoccult + on exam. Continue w/ Protonix IV. Consulted GI, performed EGD/colonoscopy. EGD showed gastritis and esophagitis. Colonoscopy as below. Colon Mass: Colonoscopy showed mass in the hepatic flexure with some bleeding. GI has ordered CEA, abdominal CT, and colorectal surgery consult. Normocytic Anemia: secondary to acute blood loss from above. Hgb 10.0, previously 12.0 on 06/19/16. Valproic acid within normal limits. Repeat H&H stable at 10.5. SRAVAN: Creatinine 1.43, previously 0.97 on 06/09/16. Creatinine improving to 1.27 with IVF. Repeat BMP. Weakness: likely multifactorial-GI Bleed/Anemia, colon mass, dehydration, and deconditioning. PT consulted, recommends HHC at [facility]. Bipolar disorder: Chronic, stable. Continue Depakote, amitriptyline, Haldol, hydroxyzine, trihexyphenidyl. Hypertension: Chronic, stable. Continue amlodipine and metoprolol. Monitor. DVT Prophylaxis: Pharmacologic contraindication secondary to active bleeding. SCDs. Discharge Planning Discharge planning once cleared by GI and colorectal surgery. Will go back to [facility] with [facility] at discharge. Problem Qualifiers (1) Anemia: Qualified Codes: D64.9 - Anemia, unspecified Terry Black Dec 07, 2016 11:44
[2016-12-07] MEDS: hydrOXYzine PAMOATE 25 MG CAP PO SCH ×3 (11:54→18:00)
[2016-12-07] MEDS: PANTOPRAZOLE SODIUM 40 MG VIAL IV PUSH SCH ×2 (11:54→21:02)
[2016-12-07] MEDS: TRIHEXYPHENIDYL HCL 2 MG TAB PO SCH ×2 (11:55→21:03)
[2016-12-07] MEDS: HALOPERIDOL 10 MG TAB PO SCH ×3 (11:55→18:00)
[2016-12-07] MEDS: DIVALPROEX DR 500 MG TABEC PO SCH ×2 (11:55→21:03)
[2016-12-07] MEDS: SODIUM CHLORIDE 0.9% FLUSH 10 ML FLUSH IV FLUSH SCH ×2 (11:57→21:00)
[2016-12-07] MEDS: METOPROLOL TARTRATE 25 MG TAB PO SCH ×2 (11:59→21:03)
[2016-12-07] MEDS ORDERED: ESMOLOL HCL 100 MG/10 ML VIAL IV ONE (12:00)
[2016-12-07] MEDS ORDERED: LIDOCAINE HCL 1% PF 5 ML AMPULE OTHER ONE (12:00)
[2016-12-07] MEDS ORDERED: PROPOFOL 200 MG/20 ML AMP IV ONE (12:00)
[2016-12-07] MEDS ORDERED: DIATRIZOATE MEGLUM/DIATRIZOATE SOD 9 ML CUP PO ONE (13:30)
[2016-12-07] MEDS ORDERED: IOHEXOL 350 MG/ML 10 ML VIAL (for RAD DIAG) IVCONTRAST ONE (15:54)
--- NOTE | 2016-12-07 16:22 | RADRPT ---
EXAM DATE/TIME: 12/07/2016 15:50 [facility] COMPARISON: No previous studies available for comparison. INDICATIONS : Evaluate for colon mass IV CONTRAST: 100 cc Omnipaque 350 (iohexol) IV ORAL CONTRAST: Prescribed oral contrast ingested. RADIATION DOSE: 10.63 CTDIvol (mGy) MEDICAL HISTORY : Hypertension. SURGICAL HISTORY : None. ENCOUNTER: Initial ACUITY: 1 day PAIN SCALE: 0/10 LOCATION: Abdomen TECHNIQUE: Volumetric scanning of the abdomen and pelvis was performed. Using automated exposure control and ad justment of the mA and/or kV according to patient size, radiation dose was kept as low as reasonably achievable to obtain optimal diagnostic quality images. DICOM format image data is available electro nically for review and comparison. FINDINGS: LOWER LUNGS: Bibasilar and apical opacities consistent with atelectasis/scarring. LIVER: Small 1.4 cm hypodensity lesion in segment 6 of the liver consistent with small cyst. Otherwise, live r is unremarkable without evidence for concerning mass. Multiple gallstones are noted in the gallblad yareli neck which otherwise appears unremarkable by CT. SPLEEN: Normal size without lesion. PANCREAS: Within normal limits. KIDNEYS: Multiple bilateral small subcentimeter cystic lesions in both kidneys which are to small to fully sandra racterize. Focal wedge-shaped decreased enhancement in the right posterior superior pole may reflect scarring. No evidence for radiopaque renal calculi or hydronephrosis. ADRENAL GLANDS: Within normal limits. VASCULAR: There is no aortic aneurysm. BOWEL/MESENTERY: Examination is abnormal. There is a massively dilated appendix measuring up to 2.3 cm with circumfere ntial cecal wall thickening and apparent mass extending slightly beyond the cecum. There are multiple additional masslike lesions in the descending colon extending to the hepatic flexure. The transverse colon and descending colon are unremarkable. There is no significant mesenteric adenopathy. No free fluid or drainable fluid collections. ABDOMINAL WALL: Within normal limits. RETROPERITONEUM: There is no lymphadenopathy. BLADDER: No wall thickening or mass. REPRODUCTIVE: Within normal limits. INGUINAL: There is a right inguinal hernia containing a portion of normal-appearing small bowel. MUSCULOSKELETAL: Within normal limits for patient age. CONCLUSION: 1. Markedly abnormal cecum and ascending colon with apparent masslike circumferential cecal wall thic kening and additional skip lesions throughout the ascending colon with massively dilated appendix. Di sproportionately minimal regional pericecal inflammatory stranding. No abscess or significant mesente trudi adenopathy. Differential considerations include colon CA with secondary obstruction of the append ix versus appendiceal carcinoma versus less likely parasitic infection. Surgical consultation is jesusita mmended. 2. Small hepatic cyst. No evidence for distant metastatic disease or hepatic abscess. Linden Evans MD on December 07, 2016 at 16:08 Board Certified Radiologist. This report was verified electronically.
[2016-12-07 17:40] LABS: AUTOMATED NEUTROPHIL # 5.3 TH/MM3 (1.8-7.7); BASOPHIL % 0.4 % (0.0-2.0); EOSINOPHIL # 0.1 TH/MM3 (0-0.4); EOSINOPHIL % 1.9 % (0.0-4.0); HEMATOCRIT 34.1 % (39.0-51.0); HEMO FLAGS DIFF FINAL; LYMPH % 16.4 % (9.0-44.0); LYMPHOCYTE # 1.2 TH/MM3 (1.0-4.8); MEAN CORPUSCULAR HEMOGLOBIN 26.8 PG (27.0-34.0); MEAN CORPUSCULAR HGB CONC 31.9 % (32.0-36.0); MONO % 11.9 % (0.0-8.0); NEUT % 69.4 % (16.0-70.0); PLATELET COUNT 424 TH/MM3 (150-450); RED BLOOD COUNT 4.06 MIL/MM3 (4.50-5.90); RED CELL DISTRIBUTION WIDTH 15.5 % (11.6-17.2); WHITE BLOOD COUNT 7.6 TH/MM3 (4.0-11.0)
[2016-12-07 18:05] LABS: POTASSIUM 3.7 MEQ/L (3.5-5.1)
[2016-12-07] MEDS: AMITRIPTYLINE HCL 100 MG TAB PO SCH (21:03)
[2016-12-07] MEDS ORDERED: metroNIDAZOLE 500 MG INJ 100 ML IV ONE (22:15)
--- NOTE | 2016-12-07 23:48 | MB ---
cc: TSERING SEYMOUR M.D., ANDREW H. M.D. DATE OF CONSULTATION 12/07/16 REASON FOR CONSULTATION Anemia, heme-positive stools, hepatic flexure mass. HISTORY OF PRESENT ILLNESS Mr. Aaron is a 66-year-old male living in an assisted-living facility who was brought to the emergency room after generalized weakness and possible syncopal episode. The patient has been having loose stools recently and low blood pressure. Workup in the emergency room showed a heme-positive stool and a low hemoglobin. The patient denies any significant fever or abdominal distension. No nausea or vomiting but has had abdominal pain and cramping he describes over the last several weeks. He has had no nausea or vomiting. His appetite has remained fairly well. He is not sure if he has lost any weight. He underwent colonoscopy by Dr. 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 CT scan does show a mass in the cecum with apparent obstruction of the appendiceal orifice and distension of the appendix. No signs of metastatic disease were noted. Please refer to the history and physical and other consultants for complete past medical and surgical history. PERTINENT PHYSICAL GENERAL: Very tall large male in no acute distress. HEENT: Remarkable for somewhat dry, pale membranes, nonicteric sclera. NECK: Was supple without gross adenopathy. CHEST: Relatively clear. Symmetrically expanding. HEART: The heart had a regular rhythm. ABDOMEN: Abdomen was soft and benign, some tympany but no rebound or guarding. No masses noted. No significant tenderness. EXTREMITIES: Showed no cyanosis and no edema. LABORATORY FINDINGS Hemoglobin has been around 10.5, platelet count of 385,000. Coagulation studies were normal. Electrolytes remarkable for BUN of 9 and creatinine of 1.3. CEA level was 2.2. Low iron level and albumin of 3.1. IMAGING STUDIES CT was reviewed showing a mass in the cecum with obstruction of the appendiceal orifice and appendiceal distension. IMPRESSION A 66-year-old male with anemia and hepatic flexure mass by colonoscopy and possible large cecal mass on CAT scan with obstruction of the appendix. Findings were discussed at great length with the patient. Attempts were made to contact his mother but she did not answer either of the telephone numbers in the chart. Recommended to the patient that he undergo a gentle bowel prep and give consent to have an exploratory laparotomy and segmental colectomy including the cecum and hepatic flexure. The risks, benefits, alternatives were discussed in great detail with the patient and will gently prep his colon in preparation for surgery sometime tomorrow. Will make additional attempts to contact his mother prior to surgery to discuss the procedure with her as well. MD TENISHA Cedillo/DILAN /11:20 PM /11:31 PM
[2016-12-08] VITALS (9 sets, daily range): BP systolic 99–144; BP diastolic 62–94; PULSE 81–160; RESP 17–20; TEMP 97.5–98.5; O2SAT 90–99
[2016-12-08] MEDS ORDERED: SODIUM CHLOR 0.9% 1000 ML INJ 1,000 ML IV ONE (00:15)
--- NOTE | 2016-12-08 08:32 | HHI.PR ---
Subjective Remarks Follow-up for colon mass. The plan is for the patient to go to the OR today. He states his abdomen has been feeling okay. He wants and what time he is going to surgery. He feels like he has been having some problems urinating. Objective Vitals Vital Signs Date Time Temp Pulse Resp B/P (MAP) Pulse Ox O2 Delivery O2 Flow Rate FiO2 12/08/16 08:07 97.6 160 20 141/93 (109) 96 12/08/16 04:08 98.0 98 17 106/71 (83) 99 99/62 (74) 144/94 (111) 12/07/16 23:25 97.5 78 18 121/79 (93) 97 12/07/16 21:57 97.5 109 90/53 (65) 100 88/52 (64) 12/07/16 21:23 98.5 84 17 123/78 (93) 97 12/07/16 10:57 97.5 74 20 133/95 (108) 98 12/07/16 10:40 89 14 120/89 (99) 98 Room Air 12/07/16 10:30 89 14 115/81 (92) 100 Nasal Cannula 2 12/07/16 10:14 97.5 91 14 116/80 (92) 100 Nasal Cannula 4 I/O 12/07/16 12/07/16 12/07/16 12/08/16 12/08/16 12/08/16 07:00 15:00 23:00 07:00 15:00 23:00 Intake Total 300 ml 200 ml Output Total 950 ml Balance 300 ml -950 ml 200 ml Intake IV Total 300 ml 200 ml Output Urine Total 950 ml Result Diagram: 12/07/16 1711 12/07/16 1711 Imaging Last Impressions Abdomen/Pelvis CT 12/07/16 0000 Signed Impressions: Service Date/Time: Wednesday, December 07, 2016 15:50 - CONCLUSION: 1. Markedly abnormal cecum and ascending colon with apparent masslike circumferential cecal wall thickening and additional skip lesions throughout the ascending colon with massively dilated appendix. Disproportionately minimal regional pericecal inflammatory stranding. No abscess or significant mesenteric adenopathy. Differential considerations include colon CA with secondary obstruction of the appendix versus appendiceal carcinoma versus less likely parasitic infection. Surgical consultation is recommended. 2. Small hepatic cyst. No evidence for distant metastatic disease or hepatic abscess. Linden Bozorgmanesh, MD Head CT 12/05/16350 Signed Impressions: Service Date/Time: Monday, December 05, 2016 04:15 - CONCLUSION: Normal examination. Roland Caba MD Chest X-Ray 12/05/16350 Signed Impressions: Service Date/Time: Monday, December 05, 2016 04:18 - CONCLUSION: 1. No acute findings. Tortuous aorta. Mild scoliosis. Roland Caba MD Objective Remarks GENERAL: Well-developed well-nourished. In no acute distress. SKIN: Warm and dry. No lesions noted. HEENT: Normocephalic. Pupils equal and round. Mucous membranes pink and moist. CARDIOVASCULAR: Regular rate and rhythm. No murmur appreciated. RESPIRATORY: No accessory muscle use. Clear to auscultation. Breath sounds equal bilaterally. GASTROINTESTINAL: Abdomen soft, non-tender, nondistended. Bowel sounds x4. No masses palpable. MUSCULOSKELETAL: No obvious deformities. No clubbing or cyanosis. No edema. NEUROLOGICAL: Awake and alert. No focal neurological deficits. Moves upper and lower extremities spontaneously. Normal speech. PSYCHIATRIC: Appropriate mood and odd affect; insight and judgment fair. A/P Problem List: (1) GI bleed ICD Code: K92.2 - Gastrointestinal hemorrhage, unspecified Status: Acute (2) Anemia ICD Code: D64.9 - Anemia, unspecified Status: Acute (3) SRAVAN (acute kidney injury) ICD Code: N17.9 - Acute kidney failure, unspecified Status: Acute (4) Bipolar disorder ICD Code: F31.9 - Bipolar disorder, unspecified Status: Chronic (5) Weakness ICD Code: R53.1 - Weakness Status: Acute Assessment and Plan 66-year-old male with a PMH of HTN and Bipolar Disorder was sent from [facility], secondary to episode of fall GI Bleed: Hemoccult + on exam. Continue w/ Protonix IV. Consulted GI, performed EGD/colonoscopy. EGD showed gastritis and esophagitis. Colonoscopy as below. Colon Mass: Colonoscopy showed mass in the hepatic flexure with some bleeding. GI has ordered CEA, abdominal CT, and colorectal surgery consult. Abdominal CT showed markedly abnormal cecum and ascending colon with masslike circumferential cecal wall thickening and additional skip lesions throughout the descending colon with massively dilated appendix. Colorectal surgery planning on ex lap and colon resection today. Normocytic Anemia: secondary to acute blood loss from above. Hgb 10.0, previously 12.0 on 06/19/16. Valproic acid within normal limits. Repeat H&H stable. Iron studies show iron deficiency, started on supplementation. SRAVAN: Creatinine 1.43, previously 0.97 on 06/09/16. Creatinine improved with IVF. Monitor. Weakness: likely multifactorial-GI Bleed/Anemia, colon mass, dehydration, and deconditioning. PT consulted, recommends C at [facility]. Bipolar disorder: Chronic, stable. Continue Depakote, amitriptyline, Haldol, hydroxyzine, trihexyphenidyl. Hypertension: Chronic, stable. Continue amlodipine and metoprolol. Monitor. Difficult urination: Initial UA unremarkable, will repeat. Abdominal CT from yesterday showed no bladder abnormalities or hydronephrosis. Possibly secondary to BPH for dehydration. Increase IVF. Consider Flomax if no improvement. DVT Prophylaxis: Pharmacologic contraindication secondary to active bleeding. SCDs. Discharge Planning Follow-up colorectal surgery recommendations postoperatively. Problem Qualifiers (1) Anemia: Qualified Codes: D64.9 - Anemia, unspecified Terry Black Dec 08, 2016 08:32
[2016-12-08] MEDS ORDERED: FERROUS SULFATE 325 MG (65 MG ELEMENTAL IRON) TAB PO SCH (09:00)
[2016-12-08] MEDS: SODIUM CHLORIDE 0.9% FLUSH 10 ML FLUSH IV FLUSH SCH ×2 (09:00→21:01)
[2016-12-08 09:29] LABS: BLOOD, URINE NEG (NEG); GLUCOSE,URINE NEG (NEG); KETONE, URINE NEG (NEG); NITRITE,URINE NEG (NEG); URINE COLOR LIGHT-YELLOW (YELLW/STRAW)
[2016-12-08 09:30] LABS: COMMENT (UR) CULT NOT INDICATED; CULTURE IF INDICATED CULT NOT INDICATED
[2016-12-08] MEDS: DIVALPROEX DR 500 MG TABEC PO SCH ×2 (09:57→21:20)
[2016-12-08] MEDS: HALOPERIDOL 10 MG TAB PO SCH (09:58)
[2016-12-08] MEDS: METOPROLOL TARTRATE 25 MG TAB PO SCH ×2 (09:58→21:20)
[2016-12-08] MEDS: TRIHEXYPHENIDYL HCL 2 MG TAB PO SCH ×2 (09:58→21:21)
[2016-12-08] MEDS: SODIUM CHLOR 0.9% 1000 ML INJ 1,000 ML IV SCH (09:58)
[2016-12-08] MEDS: DOCUSATE SODIUM 50 MG/SENNA 8.6 MG TAB PO SCH (09:59)
[2016-12-08] MEDS: hydrOXYzine PAMOATE 25 MG CAP PO SCH (09:59)
[2016-12-08] MEDS: PANTOPRAZOLE SODIUM 40 MG VIAL IV PUSH SCH (09:59)
[2016-12-08] MEDS ORDERED: GLYCOPYRROLATE 1 MG/5 ML SYRINGE IV PUSH ONE (12:25)
[2016-12-08] MEDS ORDERED: ROCURONIUM INJ 50 MG/5 ML SYRINGE IV PUSH ONE (12:25)
[2016-12-08] MEDS ORDERED: LIDOCAINE HCL 1% PF 5 ML AMPULE OTHER ONE (12:25)
[2016-12-08] MEDS ORDERED: NEOSTIGMINE 3 MG/3 ML SYR IV ONE (12:25)
[2016-12-08] MEDS ORDERED: ePHEDrine/NS 25 MG/5 ML SYR IV ONE (12:25)
[2016-12-08] MEDS ORDERED: PHENYLEPH/NS 1000 MCG/10 ML SYR IV ONE (12:25)
[2016-12-08] MEDS ORDERED: PROPOFOL 200 MG/20 ML AMP IV ONE (12:25)
[2016-12-08] MEDS ORDERED: LACTATED RINGER'S 1000 ML INJ 4,000 ML IV ONE (12:25)
[2016-12-08] MEDS ORDERED: ONDANSETRON HCL 4 MG/2 ML VIAL IV PUSH ONE (12:25)
[2016-12-08] MEDS ORDERED: MIDAZOLAM HCL 2 MG/2 ML VIAL ONE (12:46)
[2016-12-08] MEDS ORDERED: FAMOTIDINE 20 MG/2 ML VIAL ONE (12:46)
[2016-12-08] MEDS ORDERED: ACETAMINOPHEN 1000 MG/100 ML 100 ML IV ONE (12:46)
[2016-12-08] MEDS ORDERED: DEXAMETHASONE SOD PHOS 4 MG/ML VIAL ONE (12:47)
[2016-12-08] MEDS ORDERED: BUPIVACAINE HCL PF 0.5% 30 ML VIAL ONE ×2 (14:10→14:18)
[2016-12-08] MEDS ORDERED: BUPIVACAINE/EPINEPHRINE 0.5% PF 30 ML VIAL ONE (14:22)
--- NOTE | 2016-12-08 15:08 | HHI.GIFU ---
GI Follow-up Note Consult Follow-up Off the floor in OR with CRS. Entered by: Ally Carrillo Dec 08, 2016 15:08
[2016-12-08] MEDS ORDERED: DO NOT ADM ANY ANTICOAGULANT DRUGS PRN (15:13)
[2016-12-08] MEDS ORDERED: ACETAMINOPHEN/HYDROcodone 325 MG/5 MG TAB PO PRN ×2 (15:15)
[2016-12-08] MEDS ORDERED: MORPHINE SULFATE 30 MG/30 ML PCA IV SCH (15:15)
[2016-12-08] MEDS ORDERED: ENALAPRILAT 1.25 MG/ML VIAL IV PRN (15:15)
[2016-12-08] MEDS ORDERED: ENALAPRILAT 2.5 MG/2 ML VIAL IV PRN (15:15)
[2016-12-08] MEDS ORDERED: ONDANSETRON HCL 4 MG/2 ML VIAL IV PRN (15:15)
[2016-12-08] MEDS ORDERED: NALOXONE HCL 0.4 MG/ML AMP IV PRN (15:15)
[2016-12-08] MEDS ORDERED: SODIUM CHLORIDE 0.9% FLUSH 5 ML FLUSH IVF PRN (15:15)
[2016-12-08] MEDS ORDERED: POTASSIUM CHLOR 20 MEQ PREMIX 100 ML IV PRN (15:15)
[2016-12-08] MEDS ORDERED: ACETAMINOPHEN 325 MG TAB PO PRN (15:15)
[2016-12-08] MEDS ORDERED: KETOROLAC TROMETHAMINE 30 MG/ML (IVP) VIAL IVP PRN (15:15)
[2016-12-08] MEDS ORDERED: POTASSIUM CHLOR 40 MEQ PREMIX 100 ML IV PRN (15:15)
[2016-12-08] MEDS ORDERED: BUPIVACAINE HCL PF 0.5% 30 ML VIAL NB SCH (15:15)
[2016-12-08] MEDS ORDERED: BENZOCAINE 6 MG/MENTHOL 10 MG LOZENGE BUCCAL PRN (15:15)
[2016-12-08] MEDS ORDERED: Post-op Orders (for Pharmacy) MISC XX ONE (15:15)
--- NOTE | 2016-12-08 15:17 | HHI.PR ---
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
[2016-12-08] MEDS ORDERED: D5-NS + KCL 20 MEQ INJ 1,000 ML ONE (15:37)
--- NOTE | 2016-12-08 15:59 | RADRPT ---
EXAM DATE/TIME: 12/08/2016 15:23 [facility] COMPARISON: CHEST SINGLE AP, December 05, 2016, 4:18. INDICATIONS : Central line placement. MEDICAL HISTORY : Hypertension. SURGICAL HISTORY : None. ENCOUNTER: Initial ACUITY: 3 days PAIN SCORE: Non-responsive. LOCATION: Bilateral chest FINDINGS: Interval placement of right IJ central line with tip in the central SVC. No significant pneumothorax. No new focal pleural-parenchymal opacities. Cardiomediastinal contours are stable. Remainder of exam is unchanged. CONCLUSION: 1. Right IJ central line in good position without pneumothorax. 1. Linden Evans MD on December 08, 2016 at 15:56 Board Certified Radiologist. This report was verified electronically.
[2016-12-08] MEDS: D5-NS + KCL 20 MEQ INJ 1,000 ML IV SCH ×2 (16:00→21:01)
[2016-12-08] MEDS ORDERED: *morphine SULFATE 8 MG/ML PERIprocedure ONLY ONE (16:40)
[2016-12-08] MEDS: metroNIDAZOLE 500 MG INJ 100 ML IV SCH (18:19)
[2016-12-08] MEDS ORDERED: SODIUM CHLORIDE 0.9% FLUSH 5 ML FLUSH IVF SCH (21:00)
[2016-12-08] MEDS: METOCLOPRAMIDE HCL 10 MG/2 ML VIAL IVS SCH (21:02)
[2016-12-08] MEDS: AMITRIPTYLINE HCL 100 MG TAB PO SCH (21:21)
[2016-12-08] MEDS: PCA - TOTAL MG MORPHINE DELIVERED PER SHIFT SCH (21:34)
[2016-12-09] VITALS (17 sets, daily range): BP systolic 105–118; BP diastolic 44–83; PULSE 90–116; RESP 16–18; TEMP 98.2–100.4; O2SAT 92–99
[2016-12-09] MEDS: metroNIDAZOLE 500 MG INJ 100 ML IV SCH ×2 (02:02→09:55)
[2016-12-09] MEDS: D5-NS + KCL 20 MEQ INJ 1,000 ML IV SCH ×3 (02:35→18:35)
[2016-12-09 04:43] LABS: AUTOMATED NEUTROPHIL # 11.5 TH/MM3 (1.8-7.7); BASOPHIL % 0.1 % (0.0-2.0); HEMATOCRIT 29.7 % (39.0-51.0); HEMO FLAGS DIFF FINAL; LYMPH % 3.9 % (9.0-44.0); LYMPHOCYTE # 0.5 TH/MM3 (1.0-4.8); MEAN CELL VOLUME 83.2 FL (80.0-100.0); MEAN CORPUSCULAR HEMOGLOBIN 27.1 PG (27.0-34.0); MEAN CORPUSCULAR HGB CONC 32.6 % (32.0-36.0); MONO % 9.5 % (0.0-8.0); NEUT % 86.5 % (16.0-70.0); PLATELET COUNT 289 TH/MM3 (150-450); RED BLOOD COUNT 3.57 MIL/MM3 (4.50-5.90); RED CELL DISTRIBUTION WIDTH 15.3 % (11.6-17.2); WHITE BLOOD COUNT 13.3 TH/MM3 (4.0-11.0)
[2016-12-09 05:12] LABS: BICARBONATE 24.7 MEQ/L (21.0-32.0); POTASSIUM 4.5 MEQ/L (3.5-5.1)
[2016-12-09] MEDS: PCA - TOTAL MG MORPHINE DELIVERED PER SHIFT SCH ×3 (05:58→22:00)
--- NOTE | 2016-12-09 07:52 | HHI.PR ---
Subjective Remarks C/R Surg POD # 1 afebrile, VSS UO good Objective - Vital Signs Date Time Temp Pulse Resp B/P (MAP) Pulse Ox O2 Delivery O2 Flow Rate FiO2 12/09/16 06:00 95 12/09/16 05:58 16 12/09/16 03:00 99 Nasal Cannula 3.00 12/09/16 03:00 100.4 105/68 (80) Result Diagram: 12/09/16 0435 12/09/16 0435 Objective Remarks PE alert Abd - full, wound dry, intact A/P Assessment and Plan Imp: stable post-op OOB decr IVF tx to floor Bay Chávez MD Dec 09, 2016 07:52
[2016-12-09] MEDS: PANTOPRAZOLE SOD 40 MG DELAYED RELEASE TAB PO SCH (09:00)
[2016-12-09] MEDS: HALOPERIDOL 10 MG TAB PO SCH ×3 (09:54→18:52)
[2016-12-09] MEDS: TRIHEXYPHENIDYL HCL 2 MG TAB PO SCH (09:54)
[2016-12-09] MEDS: hydrOXYzine PAMOATE 25 MG CAP PO SCH ×3 (09:55→18:52)
[2016-12-09] MEDS: METOCLOPRAMIDE HCL 10 MG/2 ML VIAL IVS SCH ×2 (09:55→23:06)
[2016-12-09] MEDS: PANTOPRAZOLE SODIUM 40 MG VIAL IVP SCH (09:57)
[2016-12-09] MEDS: DIVALPROEX DR 500 MG TABEC PO SCH ×2 (09:57→23:24)
[2016-12-09] MEDS: SODIUM CHLORIDE 0.9% FLUSH 10 ML FLUSH IV FLUSH SCH (09:58)
[2016-12-09] MEDS: METOPROLOL TARTRATE 25 MG TAB PO SCH ×2 (10:01→23:05)
--- NOTE | 2016-12-09 11:39 | HHI.GIFU ---
Subjective Remarks Pt resting in bed, NAD. No complaints. Objective Vitals I&O Vital Signs Date Time Temp Pulse Resp B/P (MAP) Pulse Ox O2 Delivery O2 Flow Rate FiO2 12/09/16 06:00 95 12/09/16 05:58 16 12/09/16 05:00 97 12/09/16 04:00 93 12/09/16 03:00 92 12/09/16 03:00 99 Nasal Cannula 3.00 12/09/16 03:00 100.4 92 18 105/68 (80) 99 12/09/16 02:00 92 12/09/16 01:00 96 12/09/16 00:00 90 12/08/16 23:02 98 Nasal Cannula 3.00 12/08/16 23:00 93 12/08/16 23:00 90 Nasal Cannula 2.00 12/08/16 23:00 98.5 94 18 120/78 (92) 90 12/08/16 22:00 94 12/08/16 21:34 16 12/08/16 21:00 92 12/08/16 20:00 97.5 89 18 119/74 (89) 94 12/08/16 20:00 90 12/08/16 20:00 94 Nasal Cannula 2.00 12/08/16 19:56 89 12/08/16 19:25 97.8 86 16 120/77 (91) 96 Nasal Cannula 2 12/08/16 19:00 81 16 127/79 (95) 96 Nasal Cannula 2 12/08/16 18:30 78 16 123/81 (95) 97 Nasal Cannula 2 12/08/16 18:00 73 16 120/79 (93) 97 Nasal Cannula 2 12/08/16 17:30 76 16 119/73 (88) 97 Nasal Cannula 2 12/08/16 17:00 97.5 75 16 118/70 (86) 96 Nasal Cannula 2 12/08/16 16:53 15 12/08/16 16:45 15 12/08/16 16:45 74 16 120/76 (91) 96 Nasal Cannula 2 12/08/16 16:30 76 16 122/79 (93) 95 Nasal Cannula 2 12/08/16 16:15 77 15 123/80 (94) 95 Nasal Cannula 2 12/08/16 16:00 76 15 124/72 (89) 94 Nasal Cannula 2 12/08/16 15:45 72 15 127/77 (94) 100 Nasal Cannula 3 12/08/16 15:30 71 15 128/74 (92) 99 Nasal Cannula 3 12/08/16 15:15 70 15 125/76 (92) 98 Nasal Cannula 3 12/08/16 15:13 97.4 71 15 129/72 (91) 97 Nasal Cannula 3 12/08/16 11:46 97.7 84 20 139/89 (106) 96 I/O 12/08/16 12/08/16 12/08/16 12/09/16 12/09/16 12/09/16 07:00 15:00 23:00 07:00 15:00 23:00 Intake Total 3300 ml 1000 ml 1700 ml Output Total 950 ml 700 ml Balance 3300 ml 50 ml 1000 ml Intake Oral 100 ml IV Total 3300 ml 1000 ml 1600 ml Output Urine Total 950 ml 700 ml # Voids 2 # Bowel Movements 1 0 Laboratory Laboratory Tests Test 12/09/16 04:35 White Blood Count 13.3 Red Blood Count 3.57 Hemoglobin 9.7 Hematocrit 29.7 Mean Corpuscular Volume 83.2 Mean Corpuscular Hemoglobin 27.1 Mean Corpuscular Hemoglobin Concent 32.6 Red Cell Distribution Width 15.3 Platelet Count 289 Mean Platelet Volume 7.1 Neutrophils (%) (Auto) 86.5 Lymphocytes (%) (Auto) 3.9 Monocytes (%) (Auto) 9.5 Eosinophils (%) (Auto) 0.0 Basophils (%) (Auto) 0.1 Neutrophils # (Auto) 11.5 Lymphocytes # (Auto) 0.5 Monocytes # (Auto) 1.3 Eosinophils # (Auto) 0.0 Basophils # (Auto) 0.0 CBC Comment DIFF FINAL Differential Comment Blood Urea Nitrogen 9 Creatinine 1.34 Random Glucose 151 Calcium Level 7.5 Sodium Level 141 Potassium Level 4.5 Chloride Level 108 Carbon Dioxide Level 24.7 Anion Gap 8 Estimat Glomerular Filtration Rate 65 Imaging Last Impressions Chest X-Ray 12/08/16 0000 Signed Impressions: Service Date/Time: Thursday, December 08, 2016 15:23 - CONCLUSION: 1. Right IJ central line in good position without pneumothorax. 1. Linden vEans MD Abdomen/Pelvis CT 12/07/16 0000 Signed Impressions: Service Date/Time: Wednesday, December 07, 2016 15:50 - CONCLUSION: 1. Markedly abnormal cecum and ascending colon with apparent masslike circumferential cecal wall thickening and additional skip lesions throughout the ascending colon with massively dilated appendix. Disproportionately minimal regional pericecal inflammatory stranding. No abscess or significant mesenteric adenopathy. Differential considerations include colon CA with secondary obstruction of the appendix versus appendiceal carcinoma versus less likely parasitic infection. Surgical consultation is recommended. 2. Small hepatic cyst. No evidence for distant metastatic disease or hepatic abscess. Linden Evans MD Head CT 12/05/16 0351 Signed Impressions: Service Date/Time: Monday, December 05, 2016 04:15 - CONCLUSION: Normal examination. Roland Caba MD Physical Exam HEENT: PERRL; normocephalic; atraumatic; no jaundice. small fleshy masses on tongue CHEST: CTA CARDIAC: RRR ABDOMEN: Soft, abd binder EXTREMITIES: No clubbing, cyanosis, or edema. SKIN: Normal; no rash; no jaundice. LIFE INSURANCE UNDERWRITER: No focal deficits; alert and oriented times three. 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 Pt does report that he has had some dark stool. He denies any other GI issues. - Anemia, acute blood loss. HH relatively stablE s/p EGD found gastritis, esophagitis, path reflux - ? Diarrhea. There is mention of this in EMR, but patient denies and states that he had this during a different hospital visit. Nurse reports that he had a bowel movement yesterday, but none for her. CDiff (-). - SRAVAN. Creatinine 1.43. IVF. Per attending. - Bipolar d/o. Per attending. PLAN: - further mgmt per CRS - RADHA - PPI - Monitor HH - Transfuse as necessary - supportive care - GI will sign off, please reconsult if needed This pt seen by myself and Dr Ventura and this note is written on her behalf Arleen Faith Dec 09, 2016 11:39
--- NOTE | 2016-12-09 13:38 | HHI.PR ---
Subjective Remarks Pain control. [place] the nursing staff is doing daycare for him. Objective Vitals Vital Signs Date Time Temp Pulse Resp B/P (MAP) Pulse Ox O2 Delivery O2 Flow Rate FiO2 12/09/16 11:00 99 Nasal Cannula 3.00 12/09/16 07:00 98.2 100 18 108/73 (85) 99 12/09/16 07:00 99 Nasal Cannula 3.00 12/09/16 06:00 95 12/09/16 05:58 16 12/09/16 05:00 97 12/09/16 04:00 93 12/09/16 03:00 92 12/09/16 03:00 99 Nasal Cannula 3.00 12/09/16 03:00 100.4 92 18 105/68 (80) 99 12/09/16 02:00 92 12/09/16 01:00 96 12/09/16 00:00 90 12/08/16 23:02 98 Nasal Cannula 3.00 12/08/16 23:00 93 12/08/16 23:00 90 Nasal Cannula 2.00 12/08/16 23:00 98.5 94 18 120/78 (92) 90 12/08/16 22:00 94 12/08/16 21:34 16 12/08/16 21:00 92 12/08/16 20:00 97.5 89 18 119/74 (89) 94 12/08/16 20:00 90 12/08/16 20:00 94 Nasal Cannula 2.00 12/08/16 19:56 89 12/08/16 19:25 97.8 86 16 120/77 (91) 96 Nasal Cannula 2 12/08/16 19:00 81 16 127/79 (95) 96 Nasal Cannula 2 12/08/16 18:30 78 16 123/81 (95) 97 Nasal Cannula 2 12/08/16 18:00 73 16 120/79 (93) 97 Nasal Cannula 2 12/08/16 17:30 76 16 119/73 (88) 97 Nasal Cannula 2 12/08/16 17:00 97.5 75 16 118/70 (86) 96 Nasal Cannula 2 12/08/16 16:53 15 12/08/16 16:45 15 12/08/16 16:45 74 16 120/76 (91) 96 Nasal Cannula 2 12/08/16 16:30 76 16 122/79 (93) 95 Nasal Cannula 2 12/08/16 16:15 77 15 123/80 (94) 95 Nasal Cannula 2 12/08/16 16:00 76 15 124/72 (89) 94 Nasal Cannula 2 12/08/16 15:45 72 15 127/77 (94) 100 Nasal Cannula 3 12/08/16 15:30 71 15 128/74 (92) 99 Nasal Cannula 3 12/08/16 15:15 70 15 125/76 (92) 98 Nasal Cannula 3 12/08/16 15:13 97.4 71 15 129/72 (91) 97 Nasal Cannula 3 I/O 12/08/16 12/08/16 12/08/16 12/09/16 12/09/16 12/09/16 07:00 15:00 23:00 07:00 15:00 23:00 Intake Total 3300 ml 1000 ml 1700 ml Output Total 950 ml 700 ml Balance 3300 ml 50 ml 1000 ml Intake Oral 100 ml IV Total 3300 ml 1000 ml 1600 ml Output Urine Total 950 ml 700 ml # Voids 2 # Bowel Movements 1 0 Result Diagram: 12/09/16 0435 12/09/16 0435 Imaging Last Impressions Chest X-Ray 12/08/16 0000 Signed Impressions: Service Date/Time: Thursday, December 08, 2016 15:23 - CONCLUSION: 1. Right IJ central line in good position without pneumothorax. 1. Linden Evans MD Abdomen/Pelvis CT 12/07/16 0000 Signed Impressions: Service Date/Time: Wednesday, December 07, 2016 15:50 - CONCLUSION: 1. Markedly abnormal cecum and ascending colon with apparent masslike circumferential cecal wall thickening and additional skip lesions throughout the ascending colon with massively dilated appendix. Disproportionately minimal regional pericecal inflammatory stranding. No abscess or significant mesenteric adenopathy. Differential considerations include colon CA with secondary obstruction of the appendix versus appendiceal carcinoma versus less likely parasitic infection. Surgical consultation is recommended. 2. Small hepatic cyst. No evidence for distant metastatic disease or hepatic abscess. Linden Evans MD Head CT 12/05/16 0351 Signed Impressions: Service Date/Time: Monday, December 05, 2016 04:15 - CONCLUSION: Normal examination. Roland Caba MD Objective Remarks GENERAL: This is a well-nourished, well-developed patient, in no apparent distress. CARDIOVASCULAR: Regular rate and rhythm RESPIRATORY: Clear to auscultation. Breath sounds equal bilaterally. No wheezes , rales, or rhonchi. GASTROINTESTINAL: Abdomen soft, mild right lower abdomen tenderness, nondistended. bandage, c/D/I few bowel sounds MUSCULOSKELETAL: Extremities without clubbing, cyanosis, or edema. NEURO: Alert & Oriented x4 to person, place, time, situation. Moves all ext x4 Procedures 12/06 EGD with biopsy, attempted colonoscopy 12/07 colonoscopy 12/08 exploratory laparoscopy with ascending colectomy A/P Problem List: (1) GI bleed ICD Code: K92.2 - Gastrointestinal hemorrhage, unspecified Status: Acute (2) Anemia ICD Code: D64.9 - Anemia, unspecified Status: Acute (3) SRAVAN (acute kidney injury) ICD Code: N17.9 - Acute kidney failure, unspecified Status: Acute (4) Bipolar disorder ICD Code: F31.9 - Bipolar disorder, unspecified Status: Chronic (5) Weakness ICD Code: R53.1 - Weakness Status: Acute Assessment and Plan 66-year-old male with a PMH of HTN and Bipolar Disorder was sent from [facility], secondary to episode of fall Presenting GI Bleed: Hemoccult + on exam. Status post EGD/colonoscopy. EGD showed gastritis and esophagitis. Colonoscopy as below revealed colon Mass leading to colorectal consult and now is status post colectomy. 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 Chávez. Normocytic Anemia, acute on chronic secondary to acute blood loss from above. Hgb 10.0, previously 12.0 on 06/19/16. Repeat H&H stable. Iron studies show iron deficiency, started on previous iron supplementation. SRAVAN superimposed on chronic kidney disease stage II: Creatinine 1.43, previously 0.97 on 06/09/16. Creatinine improved with IVF. We'll continue to monitor. Weakness: likely multifactorial-GI Bleed/Anemia, colon mass, dehydration, and deconditioning. PT consulted, recommends [facility]. Bipolar disorder: Chronic, stable. Continue Depakote, amitriptyline, Haldol, hydroxyzine, trihexyphenidyl. Hypertension, essential: Chronic, stable. Continue amlodipine and metoprolol. Monitor blood pressure trends. Difficult urination, has some components of postobstructive causing the acute kidney injury: Initial UA unremarkable, will repeat. Abdominal CT from yesterday showed no bladder abnormalities or hydronephrosis. Possibly secondary to BPH for dehydration. Increase IVF. Consider Flomax if no improvement. Patient currently has Perkins post surgery, for measurement of accurate output, consider in the morning to discontinue with bladder training DVT Prophylaxis: Pharmacologic contraindication secondary to active bleeding. SCDs. Discharge Planning [facility] with home health care versus SNF Problem Qualifiers (1) Anemia: Qualified Codes: D64.9 - Anemia, unspecified Eli Guadalupe MD Dec 09, 2016 13:38
[2016-12-09] MEDS: ALVIMOPAN 12 MG CAPSULE PO SCH (23:05)
[2016-12-09] MEDS: AMITRIPTYLINE HCL 100 MG TAB PO SCH (23:24)
[2016-12-10] VITALS: BP 116/82; PULSE 110; PULSE 112; RESP 20; TEMP 98.8; O2SAT 92
[2016-12-10 04:00] VITALS: BP 117/81; PULSE 100; PULSE 108; RESP 18; TEMP 98.4; O2SAT 97
[2016-12-10 06:11] LABS: AUTOMATED NEUTROPHIL # 10.1 TH/MM3 (1.8-7.7); BASOPHIL % 0.1 % (0.0-2.0); HEMATOCRIT 29.1 % (39.0-51.0); HEMO FLAGS DIFF FINAL; LYMPHOCYTE # 0.8 TH/MM3 (1.0-4.8); MEAN CELL VOLUME 83.9 FL (80.0-100.0); MEAN CORPUSCULAR HEMOGLOBIN 27.1 PG (27.0-34.0); MEAN CORPUSCULAR HGB CONC 32.3 % (32.0-36.0); MONO % 13.8 % (0.0-8.0); NEUT % 80.1 % (16.0-70.0); PLATELET COUNT 219 TH/MM3 (150-450); RED BLOOD COUNT 3.47 MIL/MM3 (4.50-5.90); RED CELL DISTRIBUTION WIDTH 15.6 % (11.6-17.2); WHITE BLOOD COUNT 12.7 TH/MM3 (4.0-11.0)
[2016-12-10] MEDS: D5-NS + KCL 20 MEQ INJ 1,000 ML IV SCH (06:20)
[2016-12-10 06:37] LABS: BICARBONATE 23.3 MEQ/L (21.0-32.0); POTASSIUM 4.7 MEQ/L (3.5-5.1)
[2016-12-10 08:18] VITALS: BP 138/83; PULSE 120; RESP 15; TEMP 98.9; O2SAT 90
[2016-12-10] MEDS: ALVIMOPAN 12 MG CAPSULE PO SCH (08:42)
[2016-12-10] MEDS: PANTOPRAZOLE SOD 40 MG DELAYED RELEASE TAB PO SCH (08:42)
[2016-12-10] MEDS: TRIHEXYPHENIDYL HCL 2 MG TAB PO SCH (08:42)
[2016-12-10] MEDS: DIVALPROEX DR 500 MG TABEC PO SCH (08:42)
[2016-12-10] MEDS: hydrOXYzine PAMOATE 25 MG CAP PO SCH (08:42)
[2016-12-10] MEDS: HALOPERIDOL 10 MG TAB PO SCH (08:43)
[2016-12-10] MEDS: METOCLOPRAMIDE HCL 10 MG/2 ML VIAL IVS SCH (08:43)
[2016-12-10] MEDS: METOPROLOL TARTRATE 25 MG TAB PO SCH (08:43)
[2016-12-10] MEDS: PANTOPRAZOLE SODIUM 40 MG VIAL IVP SCH (08:43)
[2016-12-10 09:32] VITALS: O2SAT 93
--- NOTE | 2016-12-10 09:53 | PD.PROCEDR ---
Procedure Note Procedure DATE: 12/10/2016 PROCEDURE: Orotracheal intubation INDICATION: Respiratory failure/PEA arrest DETAILS OF PROCEDURE The patient was placed in optimal position and preoxygenated with 100% FiO2 via bag valve mask. At the start oxygen saturation was unknown %. The patient was administered no medications. I entered the oropharynx with a size 3 laryngoscope blade and obtained a grade 2 view of the airway. On single attempt a size 8.0 cuffed endotracheal tube was passed through the vocal cords. Correct tube location was confirmed with end tidal CO2 detector and by auscultating over bilateral lung meza. The endotracheal tube was secured with adhesive tape at a depth of 24 cm at the lips. The patient was connected to the ventilator. The patient tolerated the procedure well without any apparent complications. Oxygen saturations were 90-96% post intubation prior to transfer to [facility]. STAT chest x-ray pending at time of dictation. Clayton Sierra MD Dec 10, 2016 09:53
--- NOTE | 2016-12-10 09:58 | PD.PROCEDR ---
Procedure Note Procedure DATE: 12/10/2016 PROCEDURE: Code Blue/CPR INDICATION: PEA arrest DETAILS OF PROCEDURE Code called at 0855 in [facility]. Patient became suddenly unresponsive per RN. No palpable pulse. Initially, patient received 3 mg epinephrine, 2 ampules of bicarbonate and one in calcium chloride. Patient was started on norepinephrine drip at 24 microscopic kilogram per minute along with a normal saline bolus. Patient had an ROSC at 0907. During this time, patient was intubated with 8.0 ET tube at 2400 m. Patient also received 2 mg Narcan and morphine [employer] PARALEGAL is discontinued. CPR resumed at 09 20 patient received 1 mg Ativan, 2 mg epinephrine, 1 ampule sodium bicarbonate 10 1 g calcium chloride. Dopamine was started 20 mu./kg per minute. Patient was paced at 80 at 50 mA. PEA arrest/ CODE BLUE started at 0933 patient received 2 mg epinephrine, one of bicarbonate. During this time, patient was receiving normal saline wide open, was on norepinephrine and dopamine drip. Bedside echocardiogram for Dr. Ivey revealed essentially asystole. No significant cardiac wall motion No signs pneumothorax or cardiac tamponade. Time of 0948. Clayton Sierra MD Dec 10, 2016 09:58
--- NOTE | 2016-12-10 09:59 | DEATH SUM ---
Pronouncement Date Pronounced : Dec 10, 2016 Time Of : 09:48 Pronouncement Called to pronounce of patient. Identified patient as Guanako Aaron with wrist band MR# [id number]. Patient with no cardiac activity in 2 separate leads and no palpable/auscible cardiac activity. Patient with no spontaneous respirations, no corneal reflex or response to painful stimuli. Pupils fixed and dilated. Preliminary Cause of : Cardiac arrest Clayton Sierra MD Dec 10, 2016 09:59
--- NOTE | 2016-12-10 10:14 | PD.CONS ---
[facility] Critical Care Medicine Consult Requested By Dr. Guadalupe Reason for Consult PEA arrest Acute respiratory failure Primary Care Physician Unknown History of Present Illness 66-year-old male with a PMH of HTN, Bipolar Disorder, post op day #2 exploratory laparoscopy ascending colectomy for cecum carcinoma. A Code blue was called today as the patient suddenly became unresponsive went into cardiopulmonary arrest. ACLS protocol was initiated, Dr. Sierra attended CODE BLUE, see code sheet for details of code. After return of spontaneous circulation patient was emergently moved from [facility] to surgical ICU room 1302, and I took over from Dr. Sierra. After arrival to the ICU Patient lost Pulses Again and CPR Was Restarted. Patient already on 20 mcg/m of Levophed. Rhythm remained non-perfusing slow PEA. Temporary pacing was attempted with capture for approximately 2-3 minutes and then lost pulses again and CPR was restarted. Dopamine was started at 10 g per KG per minute and was rapidly increased to 20. ACLS protocol was followed for a total of 58 minutes, patient received approximately 8 mg of epinephrine, 3 amps of bicarb, 2 gm calcium, multiple wide open fluid boluses. A bedside echo towards the end of the code showed very feeble ventricle contractions, at the rate of 25 bpm, this was non- perfusing. CODE BLUE was terminated after approximately 58 minutes and patient was declared . His pupils were dilated and fixed at this time. Time of 0948. (There were no critical correctable electrolyte abnormalities) Review of Systems ROS Limitations: Clinical Condition, Intubated, Unresponsive Past Family Social History Allergies: Coded Allergies: No Known Allergies (Verified , 06/06/16) Past Medical History Unable to obtain due to cardiac arrest Past Surgical History Unable to obtain due to cardiac arrest Reported Medications Unable to obtain due to cardiac arrest Active Ordered Medications Unable to obtain due to cardiac arrest Family History Unable to obtain due to cardiac arrest Social History Unable to obtain due to cardiac arrest Physical Exam Vital Signs Vital Signs Date Time Temp Pulse Resp B/P (MAP) Pulse Ox O2 Delivery O2 Flow Rate FiO2 12/10/16 08:18 98.9 120 15 138/83 (101) 90 12/10/16 04:00 108 12/10/16 04:00 98.4 100 18 117/81 (93) 97 12/10/16 04:00 96 Nasal Cannula 3.00 12/10/16 00:00 98 Nasal Cannula 3.00 10/6/17 00:00 112 12/10/16 00:00 98.8 110 20 116/82 (93) 92 12/09/16 22:00 19 12/09/16 20:00 98 Nasal Cannula 3.00 12/09/16 20:00 116 12/09/16 20:00 98.3 116 18 115/44 (67) 92 12/09/16 15:00 104 12/09/16 15:00 99 Nasal Cannula 3.00 12/09/16 15:00 98.4 104 16 118/65 (82) 98 12/09/16 14:00 92 12/09/16 14:00 16 12/09/16 13:00 96 12/09/16 12:00 100 12/09/16 11:00 99 Nasal Cannula 3.00 12/09/16 11:00 98.6 107 16 114/83 (93) 99 12/09/16 11:00 98 12/09/16 10:00 106 Physical Exam GENERAL: Unresponsive intubated in cardiac arrest CARDIOVASCULAR: Slow ventricular rhythm, EKG showing 30 bpm no palpable pulse RESPIRATORY: Intubated equal air entry GASTROINTESTINAL: Abdomen soft, horizontal surgical incision C/D/I MUSCULOSKELETAL: Extremities without clubbing, cyanosis, or edema. NEURO: Unconscious. Pupils dilated fixed. Intubated Laboratory Laboratory Tests Test 12/10/16 05:20 White Blood Count 12.7 Red Blood Count 3.47 Hemoglobin 9.4 Hematocrit 29.1 Mean Corpuscular Volume 83.9 Mean Corpuscular Hemoglobin 27.1 Mean Corpuscular Hemoglobin Concent 32.3 Red Cell Distribution Width 15.6 Platelet Count 219 Mean Platelet Volume 7.3 Neutrophils (%) (Auto) 80.1 Lymphocytes (%) (Auto) 6.0 Monocytes (%) (Auto) 13.8 Eosinophils (%) (Auto) 0.0 Basophils (%) (Auto) 0.1 Neutrophils # (Auto) 10.1 Lymphocytes # (Auto) 0.8 Monocytes # (Auto) 1.7 Eosinophils # (Auto) 0.0 Basophils # (Auto) 0.0 CBC Comment DIFF FINAL Differential Comment Blood Urea Nitrogen 19 Creatinine 1.64 Random Glucose 104 Calcium Level 8.2 Sodium Level 143 Potassium Level 4.7 Chloride Level 111 Carbon Dioxide Level 23.3 Anion Gap 9 Estimat Glomerular Filtration Rate 51 Result Diagram: 12/10/16 0520 12/10/16519 Assessment and Plan Assessment and Plan PEA arrest Plan: See HPI above for details of code Iker Hdz MD Dec 10, 2016 10:14
[2016-12-10] MEDS ORDERED: CALCIUM CHLORIDE 10% SOLN 1 GRAM/10 ML SYR IV ONE ×2 (11:37)
[2016-12-10] MEDS ORDERED: DEXTROSE 50% IN WATER 50 ML SYRINGE IV ONE (11:37)
[2016-12-10] MEDS ORDERED: ATROPINE SULFATE 1 MG/10 ML SYRINGE IV ONE (11:37)
[2016-12-10] MEDS ORDERED: EPINEPHrine HCL (1:10,000) 1 MG/10 ML SYRINGE IV ONE ×2 (11:37)
[2016-12-10] MEDS ORDERED: NALOXONE HCL 4 MG/10 ML MDV IV ONE (11:37)
[2016-12-10] MEDS ORDERED: SODIUM BICARBONATE 8.4% INJ 50 MEQ/50 ML SYR IV ONE (11:37)
[2016-12-10] MEDS ORDERED: DOPamine INJ PREMIX 500 ML IV ONE (11:37)
--- NOTE | 2016-12-10 12:53 | HHI.PR ---
Subjective Remarks C/R Surg POD # 2 afebrile, VSS UO good +flatus Objective - Vital Signs Date Time Temp Pulse Resp B/P (MAP) Pulse Ox O2 Delivery O2 Flow Rate FiO2 12/10/16 09:32 93 100 12/10/16 08:18 98.9 120 15 138/83 (101) 12/10/16 04:00 Nasal Cannula 3.00 Result Diagram: 12/10/1651912/10/16519 Objective Remarks PE alert Abd - full, wound dry, intact on-Q dc'd A/P Assessment and Plan Imp: OOB decr IVF start PO PT Bay Chávez MD Dec 10, 2016 12:53
--- NOTE | 2016-12-10 16:18 | HHI.DS ---
Summary Note Date of : Dec 10, 2016 Time Of : 945 Admission Date Dec 08, 2016 at 07:50 Admitting Diagnosis GI bleeding, weakness Diagnosis at Time of : (1) Colon cancer ICD Code: C18.9 - Malignant neoplasm of colon, unspecified Diagnosis: Principal (2) GI bleed ICD Code: K92.2 - Gastrointestinal hemorrhage, unspecified Diagnosis: Principal (3) Anemia ICD Code: D64.9 - Anemia, unspecified Diagnosis: Secondary (4) SRAVAN (acute kidney injury) ICD Code: N17.9 - Acute kidney failure, unspecified Diagnosis: Secondary (5) Bipolar disorder ICD Code: F31.9 - Bipolar disorder, unspecified Diagnosis: Secondary (6) Weakness ICD Code: R53.1 - Weakness (7) S/P right colectomy ICD Code: Z90.49 - Acquired absence of other specified parts of digestive tract Diagnosis: Secondary Procedures 12/06 EGD with biopsy, attempted colonoscopy 12/07 colonoscopy 12/08 exploratory laparoscopy with ascending colectomy Brief History Obtain firm admitting physician's history and physical This is a 66-year-old male with a PMH of HTN and Bipolar Disorder was brought to ER by EMS secondary to episode of fall while at [facility]. Patient poor historian, unable to provide much detail. Per EMS, pt had fall yesterday afternoon, [facility] reports progressive weakness and recurrent falls. Has no complaints except for intermittent abdominal pain and dark stool. BP T over 74, HR 74, O2 sat 96% on RA, Afebrile. Hemoglobin 10, previously 12 on 06/09/16. Creatinine 1.43, produces 0.97 06/09/16. CT Head with no acute findings. CXR negative. On exam, Hemoccult grossly+. S/p Protonix, Type & Screen CBC/BMP: 12/10/16 0520 12/10/16 0520 Significant Findings Laboratory Tests Test 12/07/16 17:11 12/08/16 09:00 12/09/16 04:35 12/10/16 05:20 Red Blood Count 4.06 MIL/MM3 (4.50-5.90) 3.57 MIL/MM3 (4.50-5.90) 3.47 MIL/MM3 (4.50-5.90) Hemoglobin 10.9 GM/DL (13.0-17.0) 9.7 GM/DL (13.0-17.0) 9.4 GM/DL (13.0-17.0) Hematocrit 34.1 % (39.0-51.0) 29.7 % (39.0-51.0) 29.1 % (39.0-51.0) Mean Corpuscular Hemoglobin 26.8 PG (27.0-34.0) Mean Corpuscular Hemoglobin Concent 31.9 % (32.0-36.0) Mean Platelet Volume 6.9 FL (7.0-11.0) Monocytes (%) (Auto) 11.9 % (0.0-8.0) 9.5 % (0.0-8.0) 13.8 % (0.0-8.0) Creatinine 1.32 MG/DL (0.60-1.30) 1.34 MG/DL (0.60-1.30) 1.64 MG/DL (0.60-1.30) Estimat Glomerular Filtration Rate 66 ML/MIN (>89) 65 ML/MIN (>89) 51 ML/MIN (>89) White Blood Count 13.3 TH/MM3 (4.0-11.0) 12.7 TH/MM3 (4.0-11.0) Neutrophils (%) (Auto) 86.5 % (16.0-70.0) 80.1 % (16.0-70.0) Lymphocytes (%) (Auto) 3.9 % (9.0-44.0) 6.0 % (9.0-44.0) Neutrophils # (Auto) 11.5 TH/MM3 (1.8-7.7) 10.1 TH/MM3 (1.8-7.7) Lymphocytes # (Auto) 0.5 TH/MM3 (1.0-4.8) 0.8 TH/MM3 (1.0-4.8) Monocytes # (Auto) 1.3 TH/MM3 (0-0.9) 1.7 TH/MM3 (0-0.9) Random Glucose 151 MG/DL (74-106) Calcium Level 7.5 MG/DL (8.5-10.1) 8.2 MG/DL (8.5-10.1) Chloride Level 108 MEQ/L (98-107) 111 MEQ/L (98-107) Blood Urea Nitrogen 19 MG/DL (7-18) Imaging Last Impressions Chest X-Ray 12/08/16 0000 Signed Impressions: Service Date/Time: Thursday, December 08, 2016 15:23 - CONCLUSION: 1. Right IJ central line in good position without pneumothorax. 1. Linden Evans MD Abdomen/Pelvis CT 12/07/16 0000 Signed Impressions: Service Date/Time: Wednesday, December 07, 2016 15:50 - CONCLUSION: 1. Markedly abnormal cecum and ascending colon with apparent masslike circumferential cecal wall thickening and additional skip lesions throughout the ascending colon with massively dilated appendix. Disproportionately minimal regional pericecal inflammatory stranding. No abscess or significant mesenteric adenopathy. Differential considerations include colon CA with secondary obstruction of the appendix versus appendiceal carcinoma versus less likely parasitic infection. Surgical consultation is recommended. 2. Small hepatic cyst. No evidence for distant metastatic disease or hepatic abscess. Linden Evans MD Head CT 12/05/16 0351 Signed Impressions: Service Date/Time: Monday, December 05, 2016 04:15 - CONCLUSION: Normal examination. Roland Caba MD Hospital Course Hospital course 66-year-old male with a PMH of HTN and Bipolar Disorder was sent from [facility] secondary to episode of fall and presented with GI bleed and underwent EGD colonoscopy which showed gastritis and esophagitis. Colonoscopy revealed colon mass leading to colorectal consult and a expiratory laparoscopy ascending colectomy with findings of cecum carcinoma with appendix a large polyp in the hepatic flexure done by Dr. Chávez on December 08. Patient underwent routine postoperative care pain control physical therapy. On December 10 at 855 patient become unresponsive and CODE BLUE was initiated. ACLS protocol initiated with auto damage estimator consult at the bedside. Patient . Eli Guadalupe MD Dec 10, 2016 16:18
--- NOTE | 2016-12-17 05:35 | MP ---
cc: INOCENCIO KENDALL M.D. DATE OF SURGERY December 08, 2016 PREOPERATIVE DIAGNOSES 1. Cecal mass. 2. 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 PROCEDURE Exploratory laparotomy with right hemicolectomy. POSTOPERATIVE DIAGNOSES 1. 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 2. 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 SURGEON Dr. Kendall ASSESSMENT Dr. Estrada Villanueva PROCEDURE The patient was placed in the supine position. After adequate general anesthesia his legs were placed in Heppner stirrups and supported appropriately. The abdomen and perineum were then prepped with Betadine solution and draped in the usual sterile fashion. With Dr. Villanueva's assistance the abdomen was opened through an infraumbilical transverse incision dividing the rectus muscles with electrocautery. Exploration revealed a large bulky tumor of the cecum which appeared to obstruct the appendix and created a large fluid-filled obstructed appendix. The tumor had some serosal puckering but was not adherent to any surrounding structures. The proximal colon was palpated. At the hepatic flexure there was tattooing consistent with the previous colonoscopy's finding of polypoid tumor at this location. This was palpable through the bowel wall. The distal colon was palpated very carefully and felt to be very redundant in the rectosigmoid but otherwise pretty unremarkable. The small bowel was run from the ligament of Treitz down to the ileocecal valve and felt to be normal. The liver had no palpable masses. The gallbladder was without any stones. The stomach and duodenum were normal. The great vessels were of normal caliber and only slightly calcified First the right colon was mobilized medially by dividing along the white line of Toldt. The left ureter was identified and carefully preserved. Dissection then proceeded up the left gutter freeing the right colon off the retroperitoneum, taking down attachments to the hepatic flexure, entering the lesser sac and taking the gastrocolic omentum off the transverse colon. The bowel was then divided in the mid-transverse colon distal to the palpable tumor using the GABRIEL stapling device. The major vascular pedicles were taken between Shanna's, obtaining hemostasis with Vicryl ties. The bowel was then divided in the terminal ileum between two Ashish clamps. The specimen was removed from the table. Bowel continuity was then restored by firing the GABRIEL stapler across the antimesenteric ends of the bowel, closing the enterotomy with a TA60 stapler. The mesenteric defect was closed with a running Vicryl suture and a 3-0 Vicryl crotch suture was placed as well. The abdomen was then irrigated copiously with normal saline, adequate hemostasis achieved. Transverse incision was closed anatomically in two layers using #1 PDS sutures to reapproximate the respective fascial layers. On-Q catheters were placed into the rectus sheath on both sides and brought up through subcutaneous tunnels above the transverse incision. The subcu tissues was irrigated copiously and the skin closed with a running subcuticular Vicryl suture. The wound area was washed with normal saline and dried, sterile dressing of Telfa and gauze applied. The patient tolerated the procedure quite well and was brought to the recovery room in stable condition. The sponge and needle counts were correct at the end of the procedure. MD TENISHA Cedillo/TAMMY /10:47 PM /5:23 AM
== END 2016-12-10 11:38 | disposition expired | DRG 329 ==
LOC: NEPD 03:45 → NEDA 05:15 → NEPHCDU 06:31 → OBSVTOIN 12-08 07:50 → HCIS 12-08 15:51 → HCPC 12-08 19:38 → HCIS 12-09 16:04 → N03A 12-10 09:19
PROVIDERS: ADMIT Family Medicine; ATTEND Family Medicine
PROC: 0DJD8ZZ Inspection of Lower Intestinal Tract, Via Natural or Artificial Opening Endoscopic (ICD-10-PCS; 2016-12-06)
PROC: 0DB38ZX Excision of Lower Esophagus, Via Natural or Artificial Opening Endoscopic, Diagnostic (ICD-10-PCS; 2016-12-06)
PROC: 0DB68ZX Excision of Stomach, Via Natural or Artificial Opening Endoscopic, Diagnostic (ICD-10-PCS; 2016-12-06)
PROC: 0DBL8ZX Excision of Transverse Colon, Via Natural or Artificial Opening Endoscopic, Diagnostic (ICD-10-PCS; 2016-12-07)
PROC: 0DTF0ZZ Resection of Right Large Intestine, Open Approach (ICD-10-PCS; 2016-12-08)
PROC: 0BH17EZ Insertion of Endotracheal Airway into Trachea, Via Natural or Artificial Opening (ICD-10-PCS; principal; 2016-12-10)
PROC: 5A1935Z Respiratory Ventilation, Less than 24 Consecutive Hours (ICD-10-PCS; 2016-12-10)
PROC: 5A12012 Performance of Cardiac Output, Single, Manual (ICD-10-PCS; 2016-12-10)
DX: C18.0 Malignant neoplasm of cecum (principal); J96.00 Acute respiratory failure, unspecified whether with hypoxia or hypercapnia; N17.9 Acute kidney failure, unspecified; D62 Acute posthemorrhagic anemia; K92.1 Melena; E86.0 Dehydration; I10 Essential (primary) hypertension; K20.9 Esophagitis, unspecified; F31.9 Bipolar disorder, unspecified; K29.70 Gastritis, unspecified, without bleeding; K44.9 Diaphragmatic hernia without obstruction or gangrene; K64.8 Other hemorrhoids; D12.3 Benign neoplasm of transverse colon; E78.5 Hyperlipidemia, unspecified; I46.9 Cardiac arrest, cause unspecified
CPT/HCPCS: 31500; 36556; 70450; 71010; 74177; 76937; 80048; 80053; 80164; 81001; 82378; 82728; 83540; 83550; 84443; 85025; 85610; 85730; 86850; 86900; 86901; 86920; 88305; 88307; 88309; 88312; 92950; 93005; 94150; 96361; 96365; 96367; 96374; 96375; 96376; C9113; G0378; G8987-GP; G8988-GP; J0131; J0171; J0461; J0690; J1100; J1265; J1756; J2250; J2270; J2310; J2370; J2405; J2710; J2765; J3010; J3480; J7030; J7120; Q0177; Q9963; Q9967